=== PATIENT | male | born 1975 | race Caucasian/White ===

== ENCOUNTER 2020-11-05 11:08 | Outpatient (CLI) | payer OTHER, SELFPAY ==
--- NOTE | ~2020-11-05 | XR_ITS ---
XR lumbar spine 2-3V DATE: 11/05/2020 12:20 INDICATION: Low back pain for one week. No known injury. TECHNIQUE: AP, lateral projections COMPARISON: 02/06/2019 MR lumbar spine FINDINGS: Minimal levorotoscoliosis of the lower thoracic and lumbar spine. No fracture or bone destruction. The lumbar pedicles are intact. Lumbar and lumbosacral interspaces a re well preserved. The sacroiliac joints appear normal. IMPRESSION: Minimal levoscoliosis; otherwise negative Reviewed, dictated and finalized at location A. ING CONSULTANT
== END 2020-11-05 11:09 | disposition home or self-care (01) ==
PROVIDERS: PCP Family Medicine; Visit Provider Family Medicine
DX: M54.5 Low back pain (principal)
CPT/HCPCS: 72100

== ENCOUNTER 2020-11-21 01:03 | Day surgery (SDC) | payer OTHER, SELFPAY ==
[2020-11-20 14:16] VITALS: BMI 26.1
[2020-11-21] VITALS (7 sets, daily range): BP systolic 98–145; BP diastolic 59–79; PULSE 53–66; RESP 12–18; TEMP 36.6–36.8; O2SAT 96–100
--- NOTE | 2020-11-21 05:54 | PM.HPGS ---
History of Present Illness History of Present Illness Consent: Risks, benefits, and alternatives have been discussed and questions answered. Patient agrees to proceed with procedure. Chief complaint: Left Ear Hematoma Narrative: Victoriano Cordero is a 45 year old male he has a large left hematoma which has been drained in the office several times it needs to be drained inter intraoperatively Review of Systems Review of Systems: All systems reviewed & are unremarkable except as noted in HPI and below PMFSH Family History Family History Mother Cancer Grandparent Heart disease Sibling Hypertension Social History Social History Smoking packs per day: 0.75 Smoking cigarettes per day: 15.0 Years smoked: 26 Smoking pack-years: 19.50 Smoking status: Current every day smoker Tobacco type: cigarettes Alcohol intake: current Alcohol use details: ~1 DRINK/MONTH Substance use: never Substance use type: does not use Living arrangements: with family Additional living arrangements comments: WITH COUSIN, LEXUS Spiritual care concerns: No Meds Home Medications and Allergies Home Medications Medication Instructions Recorded Confirmed Type baclofen 20 mg tablet 20 mg PO TID 11/12/20 11/20/20 History citalopram 40 mg tablet 40 mg PO HS 11/12/20 11/20/20 History zolpidem 10 mg tablet 10 mg PO HS 11/12/20 11/20/20 History New Antibiotic 11/20/20 History gabapentin 2,400 mg PO BID 11/20/20 11/20/20 History Allergies Allergy/AdvReac Type Severity Reaction Status Date / Time meloxicam [From Mob] Allergy Itching Verified 11/20/20 14:11 Exam Narrative: Exam Narrative: the large left ear hematoma chest clear heart normal rhythm nomurmurs abdomen is soft extremities negative impression ear hematoma plan I and D Assessment and Plan Additional Plan plan is to I and D ear hematoma left
--- NOTE | 2020-11-21 05:57 | WPDHPUPDATE1 ---
History and Physical Update Update Date/Time: 11/21/20 05:57 History and Physical has been reviewed, including an updated exam of the patient. There are NO changes in the patient's condition. Risks, benefits, and alternatives have been discussed and questions answered. Patient agrees to proceed with procedure.
[2020-11-21] MEDS: LACTATED RINGERS 1,000 ML 30 ML IV CONT (08:15)
--- NOTE | 2020-11-21 08:56 | P.PNAN_ITS ---
Anes - Initial Pre Proc Eval Procedure: Operation Date: 11/21/20 10:45 Proposed Procedures p Incision And Drainage of Left Ear Hematoma - Benjamin Slater MD Date/Time: 11/21/20 08:56 Surgeon: Benjamin Slater MD Pre Op Diagnosis: Left Ear Hematoma Patient Data Age: 45 Gender: M Height: 5 ft 8.5 in Weight: 79 kg Allergies Allergy/AdvReac Type Severity Reaction Status Date / Time meloxicam [From Mobic] Allergy Itching Verified 11/21/20 08:54 Home Medications Medication Instructions Recorded Confirmed Type baclofen 20 mg tablet 20 mg PO TID 11/12/20 11/21/20 History citalopram 40 mg tablet 40 mg PO HS 11/12/20 11/21/20 History zolpidem 10 mg tablet 10 mg PO HS 11/12/20 11/21/20 History gabapentin 2,400 mg PO BID 11/20/20 11/21/20 History Patient hx anesthesia problems: none Family hx anesthesia problems: [facility] Past Medical History Medical History (Updated 11/21/20 @ 08:55 by Medardo Vazquez MD) CRPS (complex regional pain syndrome) type I Family History Family History Mother Cancer Grandparent Heart disease Sibling Hypertension Social History Social History Smoking packs per day: 0.75 Smoking cigarettes per day: 15.0 Years smoked: 26 Smoking pack-years: 19.50 Smoking status: Current every day smoker Tobacco type: cigarettes Alcohol intake: current Alcohol use details: ~1 DRINK/MONTH Substance use: never Substance use type: does not use Living arrangements: with family Additional living arrangements comments: WITH COUSINLEXUS Spiritual care concerns: No Anes - Eval Final PreProcedure Day of Procedure 11/21/20 08:56 Patient weight: normal Heart: regular rate and rhythm Lungs: clear to auscultation Airway: Mallampati scale class II Neurological: alert and oriented Last oral intake: >/= 8 hours ASA classification: II Emergent: no Anesthetic plan: proceed Anesthesia type and monitoring: general LMA and standard monitoring Informed Consent: The patient's anesthetic plan and its attendant risks and benefits were discussed with the patient/family/POA. Questions were solicited and answers provided to the satisfaction of the patient/family/POA.
[2020-11-21] MEDS: LIDO 1%/EPINEPHRINE 1:100,000 50 ML VIAL INFILTRATE (09:29)
--- NOTE | 2020-11-21 09:33 | PM.PROC ---
Procedure Note - Detailed Date of procedure: 11/21/20 Pre-op diagnosis: Left Ear Hematoma Post-op diagnosis: same Procedure performed: I and D hematoma or and placement of VAC lip last cast Description of procedure: Patient anesthesia after general anesthesia the area of the external ear was injected with xylocaine with adrenaline incision made the remainder of the fluid aspirated echo plasty he did and placed in the anterior-posterior fashion and sutured in with 2 silk Surgeon: Benjamin Slater MD Estimated blood loss (mL): 5 Drains: No Pathology: none sent Findings: Ear hematoma
== END 2020-11-21 10:53 | disposition home or self-care (01) ==
PROVIDERS: PCP Family Medicine; Visit Provider Otolaryngology
DX: H61.122 Hematoma of pinna, left ear (principal); G90.50 Complex regional pain syndrome I, unspecified; F17.210 Nicotine dependence, cigarettes, uncomplicated
CPT/HCPCS: 69000; A9270; J2250; J3010; J7120

== ENCOUNTER 2020-12-20 11:00 | Outpatient (RCR) | payer OTHER, SELFPAY ==
--- NOTE | 2020-11-22 14:43 | PTOPEVAL ---
PHYSICAL THERAPY EVALUATION AND PLAN OF CARE 11-22-20 Thank you for referring Victoriano Cordero to [facility] for the diagnosis of back pain. His plan of treatment includes land and aquatic therapy--for the buoyancy effects of the water. Aquatic exercises to begin after clearance from the ENT, when his ear can get wet. He is scheduled to be seen for therapy? 2 x/week for 4 weeks. Please review, sign, date and return this plan of care RASHEL. I agree with and certify that the following plan of care is medically necessary. Referring Physician Date Attending Provider: Mary Burns MD *PT Outpatient Evaluation Document 11/22/20 13:30 JORGE LUIS (Rec: 11/22/20 14:43 JORGE LUIS [id number]) Outpatient Past Medical History Past Medical History Source of Past Medical History Patient Neurological History Hx Other Neurological Disorders Yes: CRPS--L lower leg&thigh, lateral hip;L wrist,hand,elbow ,sh,clavicle,scapula; Cardiovascular History Hx Cardiac Disorders No Significant History Respiratory History Hx Respiratory Disorders No Significant History Gastrointestinal History Hx Gastrointestinal Disorders No Significant History Genitourinary History Hx Genitourinary Disorders No Significant History Musculoskeletal History Hx Orthopedic Surgery Yes: R 4x and L 6x knee surgeries- arthroscopic surgeries; Hx Other Musculoskeletal Disorders Yes: CRPS-R knee,pelvic/ant hip,elbow,wrist,hand Hematological History Hx Hematological Disorders No Significant History Endocrine History Hx Endocrine Disorders No Significant History HEENT History Hx HEENT Disorders No Significant History Integumentary History Hx Other Skin Disorders Yes: L ear cartilage infection - on antibiotics Reproductive History Hx Reproductive Disorders No Significant History Pain History Has Past Pain Affected Your Daily Life Yes Evaluation Information Problem Diagnosis low back pain Onset Oct 18, 2020 Subjective Information woke up on AM, with back pain, Query Text:As Reported By Patient/ thought slept wrong and it Family has not gone away; Diagnostic Tests X-Rays For This Problem Yes: per pt- negative Previous Treatments Previous Treatments For This Problem no PT for back pain- this first incident of back pain; prev PT for CRPS Prior Level of Function Activity Level (Last 3 Months) Occupation not working outside of home Hand Dominance Right Activity of Daily Living Ability Independent Indoor/Home Mobility Independent Community Mobility Independent Stairs Ability Independent
--- NOTE | 2020-12-09 16:27 | PCPTNOTE ---
pt was discussed with Marcia Galarza PTA. Added traction to plan of care for modality for pain;
--- NOTE | 2020-12-20 11:43 | PTOPEVAL ---
PHYSICAL THERAPY DISCHARGE 12-20-20 Pleas refer to the clinical summary below for his status, compared to the initial evaluation. The PT treatments that Juan received were gentle movements, aquatic and land exercises, and modalities for pain of electrical stim and mechanical traction. He reports the one session of traction made his pain worse, the stim did not change his back pain and land and aquatic exercises flared up his chronic regional pain syndrome of his L arm and leg. Juan voiced frustration over his situation and decreased ability to perform activities of daily living. He also expressed concern about causing more pain or injuring his back further, and causing a flare up of his chronic pain syndrome. Thank you for referring Victoriano Cordero to [facility] Please review, sign, date and return this discharge report RASHEL. I agree with and certify that the following plan of care is medically necessary. Referring Physician Date Attending Provider: Mary Burns MD Document 12/20/20 10:59 JORGE LUIS (Rec: 12/20/20 11:43 JORGE LUIS [id number]) Assessment Status Discharge Subjective Information Juan reports: aquatic Query Text:As Reported By Patient/ exercises increase pain, but Family tried, to see if they could help some; pain was in L arm, back and overall chronic regional pain syndrome; after water exercises, L wrist hurt so bad could not move for about 5 days; having problems doing exercises at home, due to flaring up other body areas and when engage back muscles, bones hurt; treatment here with electrical stim helped little with muscle pain, but not bone pain; the vibration bowl therapy from his friend usually helps for few hours of pain relief, last time it did not help at all; is fearful of moving and iincreasing his back pain; is frustrated with the pain and not being able to do things--cannot stand, cook, do house cleaning; takes all day to do laundry and going down the stairs to do it really hurts; PT has made pain worse. Pain Assessment Timing of Pain Assessment Timing of Pain Assessment Assessment Pain Scale Pain Scale Used Numeric (1 - 10) Self Report Pain Assessment Bilateral Back Reported Pain Level 8 Pain Frequency Chronic,Continuous Oth
== END 2020-12-20 13:34 | disposition home or self-care (01) ==
LOC: ANHPT 11:00
PROVIDERS: PCP Family Medicine; Visit Provider Family Medicine
DX: M54.5 Low back pain (principal)
CPT/HCPCS: 97012; 97014; 97110; 97113; 97140; 97162; G0283

== ENCOUNTER 2021-01-11 13:25 | Outpatient (CLI) | payer OTHER, SELFPAY ==
--- NOTE | ~2021-01-11 | MR_ITS ---
EXAMINATION: MR lumbar spine wo con EXAM DATE: 01/11/2021 14:07 INDICATION: Low back pain. CRPS, Algoneurodystrophy. TECHNIQUE: Multi-sequential, multiplanar MR images of the lumbar spine were obtained without contrast . Sagittal T1, T2, T2 fat saturation images. Axial T2 weighted images. Comparison is made to prior examination from 02/16/2019. FINDINGS: Mild disc disease at L4-5 and L5-S1. The vertebral body and disc heights are otherwise well maintained. The vertebral bodies are aligned in the AP dimension. The conus medullaris terminates at the L1 level and has normal signal intensity and morphology. There are no suspicious marrow signal abnormalities. Paraspinal soft tissue is unremarkable. Level by level evaluation: T12-L1: Disc does not extend beyond the endplate margin. Facet arthropathy: None. Neural foraminal stenosis: No stenosis. Central canal stenosis: No stenosis. L1-L2: Disc does not extend beyond the endplate margin. Facet arthropathy: Mild. Neural foraminal stenosis: No stenosis. Central canal stenosis: No stenosis. L2-L3: Disc does not extend beyond the endplate margin. Facet arthropathy: Mild. Neural foraminal stenosis: No stenosis. Central canal stenosis: No stenosis. L3-L4: Disc does not extend beyond the endplate margin. Facet arthropathy: Mild. Neural foraminal stenosis: No stenosis. Central canal stenosis: No stenosis. L4-L5: There is a mild diffuse disc bulge. Facet arthropathy: Mild. Neural foraminal stenosis: Mild bilateral. Central canal stenosis: No stenosis. L5-S1: There is a mild diffuse disc bulge. Facet arthropathy: Mild. Neural foraminal stenosis: Mild to moderate left, mild right. Central canal stenosis: No stenosis. Difficult to appreciate any significant interval change compared to 2019. IMPRESSION: 1. Mild lumbar spondylosis. Reviewed, dictated and finalized at location A. IMPRESSION: 1. Mild lumbar spondylosis.
== END 2021-01-11 13:26 | disposition home or self-care (01) ==
PROVIDERS: PCP Family Medicine; Visit Provider Family Medicine
DX: M89.00 Algoneurodystrophy, unspecified site (principal); M47.896 Other spondylosis, lumbar region
CPT/HCPCS: 72148

== ENCOUNTER 2021-01-13 15:45 | Outpatient (CLI) | payer OTHER, SELFPAY | END 2021-01-13 15:46 | disposition home or self-care (01) | LOC: ANHLAB 15:49 | PROVIDERS: PCP Family Medicine; Visit Provider Otolaryngology | DX: S00.431A Contusion of right ear, initial encounter (principal) | CPT/HCPCS: 36415; 86038 ==

== ENCOUNTER → 2021-01-27 04:42 | Outpatient (CLI) | payer OTHER, SELFPAY ==
[2021-01-27 19:57] LABS: SARS-CoV-2 RNA PCR Negative
== END ==
PROVIDERS: PCP Family Medicine; Visit Provider Otolaryngology
DX: Z01.812 Encounter for preprocedural laboratory examination (principal); Z20.822 Contact with and (suspected) exposure to COVID-19
CPT/HCPCS: C9803; U0003; U0005

== ENCOUNTER 2021-01-30 02:11 | Day surgery (SDC) | payer OTHER, SELFPAY ==
[2021-01-24 08:56] VITALS: BMI 26.7
--- NOTE | 2021-01-27 06:16 | P.HP_ITS ---
History of Present Illness History of Present Illness Consent: Risks, benefits, and alternatives have been discussed and questions answered. Patient agrees to proceed with procedure. Chief complaint: hematoma right ear Narrative: Victoriano Cordero is a 45 year old male has an hematoma the right ear which was lanced in the office he is going to the operating room now for further i PMFSH Past Medical History Medical History CRPS (complex regional pain syndrome) type I Family History Family History Mother Cancer Grandparent Heart disease Sibling Hypertension Social History Social History Smoking packs per day: 0.75 Smoking cigarettes per day: 15.0 Years smoked: 20 Smoking pack-years: 15.00 Smoking status: Current every day smoker Tobacco type: cigarettes Alcohol intake: current Substance use: never Substance use type: does not use Additional living arrangements comments: WITH COUSINLEXUS Spiritual care concerns: No Meds Home Medications and Allergies Home Medications Medication Instructions Recorded Confirmed Type baclofen 20 mg tablet 20 mg PO TID 11/12/20 01/24/21 History citalopram 40 mg tablet 40 mg PO HS 11/12/20 01/24/21 History zolpidem 10 mg tablet 10 mg PO HS 11/12/20 01/24/21 History gabapentin 2,400 mg PO BID 11/20/20 01/24/21 History Allergies Allergy/AdvReac Type Severity Reaction Status Date / Time meloxicam [From Mobic] Allergy Itching Verified 01/24/21 08:55 nicotine [From Nicoderm CQ] Allergy Blister Verified 01/24/21 09:00 Exam Narrative: Exam Narrative: chest clear heart other murmurs them such a negative hematoma right ear Assessment and Plan Additional Plan plan is incision and drainage of the right ear with placement of bilateral spl ints
[2021-01-30] VITALS (7 sets, daily range): BP systolic 115–135; BP diastolic 59–85; PULSE 58–78; RESP 12–18; TEMP 36.3; O2SAT 93–97; BMI 26.0
--- NOTE | 2021-01-30 06:02 | WPDHPUPDATE1 ---
History and Physical Update Update Date/Time: 01/30/21 06:02 History and Physical has been reviewed, including an updated exam of the patient. There are NO changes in the patient's condition. Risks, benefits, and alternatives have been discussed and questions answered. Patient agrees to proceed with procedure.
--- NOTE | 2021-01-30 09:32 | WPDANESEPPF ---
Anes - Initial Pre Proc Eval Procedure: Operation Date: 01/30/21 11:00 Proposed Procedures p Incision And Drainage Of Right Ear Hematoma - Benjamin Slater MD Date/Time: 01/30/21 09:32 Surgeon: Benjamin Slater MD Pre Op Diagnosis: hematoma right ear Patient Data Age: 45 Gender: M Height: 5 ft 8.5 in Weight: 78.8 kg Last Vital Signs Temp 97.4 F L 01/30/21 09:20 Pulse 76 01/30/21 09:20 Resp 18 01/30/21 09:20 BP 131/76 01/30/21 09:20 Pulse Ox 97 01/30/21 09:20 Allergies Allergy/AdvReac Type Severity Reaction Status Date / Time meloxicam [From Mobic] Allergy Itching Verified 01/30/21 09:23 nicotine [From Nicoderm CQ] Allergy Blister Verified 01/30/21 09:23 Home Medications Medication Instructions Recorded Confirmed Type baclofen 20 mg tablet 20 mg PO TID 11/12/20 01/30/21 History citalopram 40 mg tablet 40 mg PO HS 11/12/20 01/30/21 History zolpidem 10 mg tablet 10 mg PO HS 11/12/20 01/30/21 History gabapentin 2,400 mg PO BID 11/20/20 01/30/21 History Patient hx anesthesia problems: none Family hx anesthesia problems: none PMFSH Past Medical History Medical History CRPS (complex regional pain syndrome) type I Family History Family History Mother Cancer Grandparent Heart disease Sibling Hypertension Social History Social History Smoking packs per day: 0.75 Smoking cigarettes per day: 15.0 Years smoked: 26 Smoking pack-years: 19.50 Smoking status: Current every day smoker Tobacco type: cigarettes Alcohol intake: current Alcohol use details: 2/MONTH Substance use: never Substance use type: does not use Living arrangements: with family Additional living arrangements comments: WITH COUSIN, LEXUS Spiritual care concerns: No Anes - Eval Final PreProcedure Day of Procedure 01/30/21 09:32 Patient weight: normal Heart: regular rate and rhythm Lungs: clear to auscultation Airway: Mallampati scale class II Neurological: alert and oriented Last oral intake: >/= 8 hours ASA classification: II Emergent: no Anesthetic plan: proceed Anesthesia type and monitoring: general LMA and standard monitoring Informed Consent: The patient's anesthetic plan and its attendant risks and benefits were discussed with the patient/family/POA. Questions were solicited and answers provided to the satisfaction of the patient/family/POA.
[2021-01-30] MEDS: LACTATED RINGERS 1,000 ML 30 ML IV CONT (09:33)
[2021-01-30] MEDS: LIDO 1%/EPINEPHRINE 1:100,000 50 ML VIAL INFILTRATE (10:24)
--- NOTE | 2021-01-30 10:34 | PM.PROC ---
Procedure Note - Detailed Date of procedure: 02/03/21 Pre-op diagnosis: hematoma right ear Procedure performed: Incision and drainage hematoma right ear with placement of splints Description of procedure: [place] Anesthesia and the ear was injected xylocaine with adrenaline and incision made near the prior hematoma was opened up and splints sutured in on both sides with to a Flick Anesthesia: GLMA Surgeon: Benjamin Slater MD Estimated blood loss (mL): 0 Drains: No Packing: No Pathology: none sent Complications: No immediate complications Condition: stable Disposition: PACU Findings: Small hematoma right ear
== END 2021-01-30 12:02 | disposition home or self-care (01) ==
PROVIDERS: PCP Family Medicine; Visit Provider Otolaryngology
PROC: (CPT 69000; principal; 2021-01-30 11:00)
DX: S00.432A Contusion of left ear, initial encounter (principal); F17.210 Nicotine dependence, cigarettes, uncomplicated; X58.XXXA Exposure to other specified factors, initial encounter; Y93.9 Activity, unspecified; Y92.9 Unspecified place or not applicable; Y99.9 Unspecified external cause status
CPT/HCPCS: 69000; A9270; J1100; J2250; J2405; J2704; J3010; J7120

== ENCOUNTER 2022-06-09 12:30 | Outpatient (RCR) | payer OTHER, SELFPAY ==
--- NOTE | 2022-04-28 10:17 | PTOPEVAL ---
PHYSICAL THERAPY INITIAL EVALUATION. Thank you for referring Victoriano Cordero to [facility].? The patient is scheduled to be seen for therapy? 1x/week for 6 weeks. Please review, sign, date and return this plan of care RASHEL. I agree with and certify that the following plan of care is medically necessary. Referring Physician Date Attending Provider: Alphonso Gardner *PT Outpatient Evaluation Start: 04/28/22 Outpatient Past Medical History Hx Other Neurological Disorders Yes: CRPS--L lower leg&thigh, lateral hip;L wrist,hand,elbow ,sh,clavicle,scapula; Hx Orthopedic Surgery Yes: R 4x and L 6x knee surgeries- arthroscopic surgeries; Hx Other Musculoskeletal Disorders Yes: CRPS-R knee,pelvic/ant hip,elbow,wrist,hand Evaluation Information Diagnosis Complex Regional pain syndrome Onset chronic Subjective Information Pt states he has complex Query Text:As Reported By Patient/ regional pain syndrome (CRPS). Family He states he has tried therapy multiple times and not been able to pass even aquatic therapy. He states his L shoulder has been causing him more issues than usual. He states he does not know if this is a greater flair up of his CRPS or something wrong with his shoulder. He reports CRPS in his L knee, hip, shoulder, elbow, wrist, collar bone, scapular, ankle, and all the joint of his left hand . The same joint are involved on his R side. Pt states he went to [place] to visit family, coming back he was sad because he was leaving them, he states the emotions forced him t o have to stay in bed for 10 days. Pt states his shoulder pain has increased over the last 2 months. Pain Assessment Timing of Pain Assessment Timing of Pain Assessment Assessment Pain Scale Pain Scale Used Numeric (1 - 10) Self Report Pain Assessment Generalized Reported Pain Level 8 Lowest Pain Intensity 6 Greatest Pain Intensity 10 Pain Score Pain Score 8: Self Report Intervention
--- NOTE | 2022-06-09 13:18 | PTOPDC ---
Evaluation Information Assessment Status Progress Diagnosis CPRS Onset chronic Subjective Information Pt states he has been better. He reports his shoulder is a lost cause . he states this weekend he went to his uncles house this weekend and was able to have a good time. Pt states he has had no improvement with therapy since he started. He states he actually is finding more and more things that he cannot d/t bc of pain. Pt reports 0% improvement in his shoulder, he reports worsening in his symptoms d/t exercise. He would like to be done with therapy d/t his CRPS. Pt states he wants to put his arm in a sling but cant because of his CRPS in his elbow. Reported Pain Level Pain Score 8: Self Report Assessment PT Clinical Summary Victoriano presents to therapy today for his progress report following 6 visits of skilled therapy. Today he reports 0% improvement in overall symptoms. He continues to reports mainly shoulder pain aside from his everyday pain. He demonstrates active L shoulder ROM that is WFL, when motion is performed slowly. He demonstrates grossly 3+/5 strength throughout his L shoulder. He reports no improvements overall either d/t limitations from his CRPS. He states he would like to be discharged from skilled therapy services at this time d/t making no progress. FIQR at initial evaluation 161/210, 76% disability FIQR today 168/210, 80% disability Plan of Care PT Services Indicated No Treatment Frequency and to be d/c'ed per pt request Duration
== END 2022-06-10 14:09 | disposition home or self-care (01) ==
LOC: ANHPT 12:30
DX: G90.529 Complex regional pain syndrome I of unspecified lower limb (principal)
CPT/HCPCS: 97014; 97110; 97112; 97140; 97162; 97530; G0283

== ENCOUNTER 2022-06-16 12:36 | Outpatient (CLI) | payer OTHER, SELFPAY ==
--- NOTE | ~2022-06-16 | XR_ITS ---
XR shoulder LT min 2V DATE: 06/16/2022 13:05 INDICATION: Left shoulder joint pain since October,. No recent injury. TECHNIQUE: 4 views COMPARISON: 12/31/2018 left shoulder FINDINGS: No fracture or dislocation, periosteal reaction or bone destruction or abnormal soft tissue calcification. Normal alignment at the acromioclavicular and glenohumeral joints. IMPRESSION: No significant abnormality Reviewed, dictated and finalized at location A. IMPRESSION: No significant abnormality
== END 2022-06-16 12:37 | disposition home or self-care (01) ==
LOC: ANHIMG 12:40
PROVIDERS: PCP Physician Assistant; Visit Provider Physician Assistant
DX: M25.512 Pain in left shoulder (principal)
CPT/HCPCS: 73030

== ENCOUNTER 2022-07-03 14:25 | Outpatient (CLI) | payer OTHER, SELFPAY ==
--- NOTE | ~2022-07-03 | MR_ITS ---
EXAMINATION: MR shoulder LT wo con DATE: 07/03/2022 15:31 INDICATION: Left shoulder pain. TECHNIQUE: Magnetic resonance imaging (MRI) of the left shoulder was performed without intravenous co ntrast. Sequences included axial PD-weighted FS FSE, coronal oblique PD-weighted FS FSE and T2-weight ed FS FSE, and sagittal oblique T2-weighted FS FSE and T1-weighted FSE. COMPARISON: Left shoulder radiographs 06/16/2022 FINDINGS: Coracoacromial arch: The acromion undersurface is curved in morphology (type II). There is mild acromioclavicular joint os teoarthritis. No subacromial/subdeltoid bursitis. Rotator cuff: There is mild supraspinatus and infraspinatus tendinopathy. Teres minor tendon is normal. There is mi ld subscapularis tendinopathy. No tear. There is no asymmetric fatty atrophy of the rotator cuff musc le bellies. Biceps tendon and glenoid labrum: Biceps tendon is in bicipital groove. Intra-articular biceps tendon is normal. The glenoid labrum is normal. Fluid: There is no glenohumeral joint effusion. Bones/cartilage: Glenoid cartilage is normal. Humeral head cartilage is normal. IMPRESSION: 1. Mild rotator cuff tendinopathy. No tear. 2. Mild acromioclavicular joint osteoarthritis. Reviewed, dictated and finalized at location A.
== END 2022-07-03 14:26 | disposition home or self-care (01) ==
PROVIDERS: PCP Physician Assistant; Visit Provider Physician Assistant
DX: M25.512 Pain in left shoulder (principal); M75.82 Other shoulder lesions, left shoulder; M19.012 Primary osteoarthritis, left shoulder
CPT/HCPCS: 73221

== ENCOUNTER 2023-01-06 11:51 | Outpatient (RCR) | payer OTHER, SELFPAY ==
--- NOTE | 2023-01-06 13:12 | PTOPEVDC ---
Assessment and note entered by Wander Hand, PT Thank you for referring Victoriano Cordero to [facility].? An evaluation has been completed. No further treatment is needed. Evaluation Information Assessment Status Evaluation Diagnosis S/P HILDA bunionectomy Onset 11/24/22 Subjective Information Patient reports having some issues with the feet when he was wearing his medical post op shoes, but after getting back to regular shoes and pulling stitches out on both sides he is doing very well. Reporting no issues with walking, standing, or steps currently. Patient reports he has been doing stretching and range of motion prior to seeing the physical therapist. Reports seeing the surgeon 01/18/23 Reported Pain Level Pain Score 0: Self Report Assessment PT Clinical Summary Mr. Cordero is a 47 year old male coming into the clinic for a diagnosis of bunions HILDA LE. He had surgery on 11/24/22 and has progressed from medical post op shoe to regular tennis shoes. Patient has WFL ankle and big toe range of motion. Not having complaints of pain or with functional mobility. Discharged from skilled physical therapy with HEP to keep tendons and scar from having adhesions. Plan of Care PT Services Indicated No Treatment Frequency and discharged skilled physical therapy. Duration
== END 2023-01-06 15:23 | disposition home or self-care (01) ==
LOC: ANHPT 11:51
PROVIDERS: PCP Physician Assistant
DX: M21.619 Bunion of unspecified foot (principal)
CPT/HCPCS: 97110; 97161

== ENCOUNTER 2023-12-06 08:05 | Outpatient (CLI) | payer OTHER, SELFPAY ==
--- NOTE | ~2023-12-06 | XR_ITS ---
EXAMINATION: XR shoulder LT min 2V DATE: 12/06/2023 08:24 INDICATION: Left shoulder pain. TECHNIQUE: 4 views of left shoulder were obtained. COMPARISON: Left shoulder radiographs 06/16/2022 FINDINGS: Bone alignment is normal. No fracture. Glenohumeral joint is normal. There is mild acromioc lavicular joint osteoarthritis. IMPRESSION: 1. Mild left acromioclavicular joint osteoarthritis. Reviewed, dictated and finalized at location E. 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
== END 2023-12-06 08:06 | disposition home or self-care (01) ==
PROVIDERS: PCP Physician Assistant; Visit Provider Physician Assistant
DX: M19.012 Primary osteoarthritis, left shoulder (principal)
CPT/HCPCS: 73030

== ENCOUNTER 2024-01-13 13:15 | Outpatient (RCR) | payer OTHER, SELFPAY ==
--- NOTE | 2023-12-31 10:00 | OPREHPOC ---
Outpatient Therapy Plan of Care This is a Multidisciplinary Plan of Care that may contain components documented by all disciplines (PT, OT, and ST.) PT Problem 1 PT Problem #1 Knowledge Deficit PT Goal 1 Goal *indep with HEP PT Problem 2 PT Problem #2 Pain PT Goal 1 Goal 1* pt report pain at worst of 6/10 2* self assessment with Quick Dash of 32% limitation 3* pt report sleeping 2 hours at time PT Problem 3 PT Problem #3 Impaired Strength PT Goal 1 Goal increase L shoulder strength to improve ability to perform self care and home tasks: standing L shoulder active ROM x 3 reps: 1* flexion to 95' 2* abduction to 90' 3* IR- reach behind back, fingers to lower edge scapula 4* ER- reach behind head, palm to back of head
--- NOTE | 2023-12-31 10:00 | PTOPEVAL1 ---
Assessment and note entered by Guillermina Mccormack, PT Evaluation Information Assessment Status Evaluation Diagnosis L shoulder pain Onset Jun Subjective Information gradual increase in shoulder pain over the past few years; add cortisone shot in shoulder 2x- first helped, second did not help; more pain and cannot get relief anymore; is R hand dominant; no trauma or injury to shoulder; history: self dislocation/ reposition of L shoulder; chronic regional pain syndrome- affects L side of body; x ray: recent mild L A-C joint OA; MRI of shoulder reported mild tendinopathy mild A-C joint OA; Activity: not working outside of home, have applied for disability; living with his parents, to assist with care of his mom who is ill; Quick DASH self rating of 48% limitation in activity pt has had multiple PT sessions for pain-- discussed treatment options with him: home stim, US, aquatic--not help his pain; he has never had cold laser, taping or dry needling; Reported Pain Level Pain Score Self Report Additional Pain Score Comments pain range of the past week 6- 9/10; posterior, anterior and lateral GH joint, hurts, sharp; shoots up to neck and down to elbow increase pain: using arm decrease pain: cannot get shoulder in a comfortable position; heat/ice not help; sleeping disrupted-- awaken every hour due to pain and then cannot get comfortable to go back to sleep; total 3-4 hr/night (norm for him is 6 hr/ night) home stim unit helps a little over muscles in upper back, but not help over shoulder; discussed use of sling to support arm--pressure over elbow increases pain in elbow and shoulder Assessment PT Clinical Summary Victoriano has the diagnosis of L shoulder pain. His medical history includes chronic L shoulder pain, chronic pain with L side chronic regional pain syndrome. His self asse
--- NOTE | 2024-01-14 10:11 | PCPTNOTE ---
talked with pt on phone, he reported more pain since coming for therapy, wants to stop for now. Discussed to make follow up appt with provider, canceled 3 PT appointments. Will keep his chart open for 30 days, to call if additional PT needed. He is to continue stretching ROM of shoulder to maintain as he tolerates.
--- NOTE | 2024-02-08 14:17 | PTOPDC ---
Assessment and note entered by Guillermina Mccormack, PT Discharge Information Assessment Status Discharge - Pt Not Present Diagnosis L shoulder pain Onset Jun Assessment PT Clinical Summary Victoriano has received 3 PT sessions, then canceled the therapy due to having more pain. The goals were not addressed. Discharge PT services. Plan of Care PT Services Indicated No
== END 2024-02-08 14:34 | disposition home or self-care (01) ==
LOC: ANHPT 13:15
PROVIDERS: PCP Physician Assistant; Visit Provider Physician Assistant
DX: M25.512 Pain in left shoulder (principal)
CPT/HCPCS: 97039; 97140; 97162; 97530

== ENCOUNTER 2024-02-08 09:41 | Outpatient (CLI) | payer OTHER, SELFPAY ==
--- NOTE | ~2024-02-08 | MR_ITS ---
EXAMINATION: MR shoulder LT wo con DATE: 02/08/2024 10:40 INDICATION: Left shoulder pain TECHNIQUE: Magnetic resonance imaging (MRI) of the left shoulder was performed without intravenous co ntrast. Sequences included axial PD-weighted FS FSE, coronal oblique PD-weighted FS FSE, coronal obli que T2-weighted FS FSE, sagittal PD-weighted FS FSE, and sagittal T1-weighted SE. COMPARISON: None. FINDINGS: Coracoacromial arch: The acromion undersurface is curved in morphology (type II). The coracoacromial ligament is normal. M ild acromioclavicular osteoarthritis. Rotator cuff: Moderate supraspinatus and infraspinatus tendinopathy with small partial-thickness intrasubstance tea r at the greater tuberosity footplate of the supraspinatus tendon involves approximately one half of the tendon thickness but appears to severe at the articular and bursal surfaces. The teres minor tend on is normal. Mild subscapularis tendinopathy with small linear longitudinal split tear between the f ibers of the cephalad and mid thirds of the tendon which extends approximately 1.2 cm medially from t he lesser tuberosity footplate. Normal rotator cuff muscle bulk and signal. Biceps tendon, glenoid labrum and glenohumeral cartilage: Long head of the biceps tendon is normal. There is thickening and irregular increased signal at the a nteroinferior glenoid labrum consistent with degenerative tearing with more well-defined linear tear extending from the inferior labrum at the 6:00 position to the 9:00 position of the posterior labrum. Glenohumeral cartilage is normal. Fluid: Physiologic amount of fluid in the glenohumeral joint and biceps tendon sheath. No loose osteochondr al bodies. No abnormal fluid signal in the subacromial/subdeltoid bursa to suggest bursitis. Bones: Bone alignment is normal. No fracture or pathologic marrow replacing process. IMPRESSION: 1. Tear of the caudal half of the glenoid labrum. 2. Mild tendinopathy and small moderate severity intrasubstance tear at the footplate of the supraspi natus tendon. 3. Mild tendinopathy and small longitudinal split tear at the distal subscapularis tendon. 4. Mild acromioclavicular osteoarthritis. Reviewed, dictated and finalized at location A. IMPRESSION: 1. Tear of the caudal half of the glenoid labrum. 2. Mild tendinopathy and small moderate severity intrasubstance tear at the brook tplate of the supraspinatus tendon. 3. Mild tendinopathy and small longitudinal split tear at the distal subscapula ris tendon. 4. Mild acromioclavicular osteoarthritis.
== END 2024-02-08 09:42 | disposition home or self-care (01) ==
PROVIDERS: PCP Physician Assistant; Visit Provider Physician Assistant
DX: S43.432A Superior glenoid labrum lesion of left shoulder, initial encounter (principal); M75.112 Incomplete rotator cuff tear or rupture of left shoulder, not specified as traumatic; M19.012 Primary osteoarthritis, left shoulder; X58.XXXA Exposure to other specified factors, initial encounter
CPT/HCPCS: 73221

== ENCOUNTER 2025-06-16 07:33 | Emergency (ER) | payer OTHER, SELFPAY ==
--- OUTSIDE RECORDS SUMMARY | 2012-04-05 05:00 | XMS_ITS | Continuity of Care Document ---
Author Organization [facility] Address [address] [place] [address] Phone Care Team Providers Care Sales Floor Team Leader Name Role Phone Maximilian Horne MD Unavailable Unavailabl e Allergies, Adverse Reactions, Alerts Substance Reaction Status Criticality No Known allergies Medications Medication Instructions Dosage Effective Dates (start - stop) Status Comments tramadol 50 mg Tab take 1 tablet (50MG) by oral route every 6 hours as needed 50 MG - Active Advance Directives Directive Yes / No Effective Date File Name Resuscitation Not Answered N/A N/A Life Support Not Answered N/A N/A Intubation Not Answered N/A N/A Antibiotics Not Answered N/A N/A IV Fluid Support Not Answered N/A N/A Tube Feed Not Answered N/A N/A Other Directive N/A N/A WARNING:The information contained in this section is historical and is provided for information only and does not constitute a legal document or any assurance that the information is still accurate. Please verify the information with the ann of the legal document before using it for clinical purposes. Encounters Encounter Description Practice Location Reason(s) For Visit Diagnoses Date Provider Providers Copied on Encounter [facility], [address] [facility], [place], [address], [place] tel:[phone] [facility] Aftercare following surgery of the musculoskeletal system, necPain in joint involving lower legChondromalacia of patella 2 Paty Yao. [address] , [place], [place], [id number] . tel:[phone] [facility], [address] [facility] [address], [place], [address], [place] tel:[phone] [facility] Aftercare following surgery of the musculoskeletal system, [facility] [address] Angle Kahn. [address], [place], [place], [id number] . tel: [phone] [facility], [address], [address], [place] tel:[phone] [facility] Pain in limb 2 Angle Kahn. [address], [place], [id number] . tel: [phone] [facility], [address] [facility] [address] [address], [place], [address], [place] tel:[phone] [facility] (chief complaint) Aftercare following surgery of the musculoskeletal system, [facility] [address] Ang[address] Kahn. [address] [place], [place], [id number] . tel: [phone] Family History Family Member Type Diagnosis Age At Onset No Information Payers Payer name Insurance type Covered democrat ID Authoriza tion(s) No Information Social History Type Description Quantity Date Captured Comments Alcohol Use Details beer Caffeine Use Details Unknown Tobacco Use Status No Information Smoking Status Current every day smoker 2011 Sex Male Vital Signs Date / Time: Height Weight BMI Pulse Rate Blood Pressure Temperature Respiratory Rate Body Surface Area Head Circumference Head Circ. Percentile Wt./Jacoby. Percentile BMI percentile Pulse Ox Inhaled Ox 9:59 AM 68.50 in 160.00 lbs 23.9 7 kg/m eter (2) Chief Complaint And Reason For Visit No Information Reason For Referral Reason For Referral No Information Plan Of Treatment Date Type Action Status Referral Ordered: N-INVAS PHYSIOLOGIC STD XTR VEINS COMPL BI STD LT knee/leg ordered History Of Present Illness Encounter Date Complaint History Of Prese nt Illness No Information Functional Status Date Functional Assessmen t No Information Instructions Date Instruction Additional Infor mation No Information Assessments Type Assessment Date No Information Patient Care Teams Name Effective Dates (start - stop) Status Members No Information
--- OUTSIDE RECORDS SUMMARY | 2013-12-01 08:28 | XMS_ITS | Continuity of Care Document ---
Author Organization [facility] Address [address] [place] [address] Phone Care Team Providers Care Grinding Supervisor Name Role Phone Brandon Barroso MD, MD Unavailable Unavailable Allergies, Adverse Reactions, Alerts Substance Reaction Status Criticality No Known Allergies Active No Inform ation Procedures Procedure Date X-ray exam knee, 3 views Independent Medical Examination IVELISSE X-ray exam knee, 3 views Advance Directives Directive Yes / No Effective Date File Name No Information Encounters Encounter Description Practice Location Reason(s) For Visit Diagnoses Date Provider Providers Copied on Encounter [facility], [address] [place] [address], [id number], [phone] [facility] No Information 4 Dharmesh Taylor. [address], [id number] , [place]. tel: [phone] Independent Medical Examination IVELISSE [facility], [address] [place] [address], [id number], [place] tel:[phone] [facility] bilateral knee IVELISSE (chief complaint) Other Chronic PainJOINT PAIN-L/LEG 4 Dharmesh Taylor. [address] [facility] [address], [place], [place], [id number] , [place]. tel: [phone] Family History Family Member Type Diagnosis Age At Onset No Information Payers Payer name Insurance type Covered republican ID Authoriza tion(s) No Information Social History Type Description Quantity Date Captured Comments Sex Male Smoking Status No Information Chief Complaint And Reason For Visit No Information Reason For Referral Reason For Referral No Information Plan Of Treatment Date Type Action Status Referral Ordered: X-ray exam knee, 3 views Bilateral ordered History Of Present Illness Encounter Date Complaint History Of Prese nt Illness No Information Functional Status Date Functional Assessmen t No Information Instructions Date Instruction Additional Infor mation No Information Assessments Type Assessment Date No Information Patient Care Teams Name Effective Dates (start - stop) Status Members No Information
--- NOTE | ~2025-06-16 | CT_ITS ---
EXAMINATION: CT abdomen pelvis wo con, 06/16/2025 10:00 CDT HISTORY: L flank pain radiating abd; c/f stone COMPARISON: No comparisons available. TECHNIQUE: CT scan of the abdomen and pelvis was performed without IV contrast. One or more of the following dose reduction techniques were used: automated exposure control, adjustment of the mA and/or kV according to patient size, use of iterative reconstruction technique. Unless otherwise stated, incidental findings do not require dedicated follow up imaging FINDINGS: CT abdomen: LUNG BASES: The lung bases are clear. The visualized portions of the heart and pericardium are unremarkable. LIVER: Unremarkable, liver contours intact, no lesions. SPLEEN: Unremarkable, no splenomegaly. KIDNEYS: Right Kidney: Unremarkable. No calculi. No hydronephrosis. Left Kidney: Left kidney there is minimal left hydronephrosis and hydroureter although there is no obstructing calcified ureteral calculus demonstrated. ADRENAL GLANDS: Unremarkable. PANCREAS: Unremarkable. GALLBLADDER/BILIARY: Unremarkable. No biliary dilatation. STOMACH AND ESOPHAGUS: Visualized stomach and esophagus within normal limits. BOWEL/MESENTERY: No colitis or diverticulitis. Appendix normal. Mesentery normal. Small bowel normal. ADENOPATHY/RETROPERITONEUM: No lymphadenopathy. AORTA/VASCULATURE: Normal caliber aorta. FREE FLUID OR FREE AIR: No free fluid.. CT pelvis: SOLID ORGANS/REPRODUCTIVE: Prostate is enlarged with heterogeneity noted of the right inferior prostate, and prostate lesion is not excluded, correlate with PSA and ultrasound. BLADDER: Within normal limits. OSSEOUS STRUCTURES: No acute osseous abnormality.No suspicious lesions. OVERLYING SOFT TISSUES: Unremarkable. IMPRESSION: 1. Left-sided hydronephrosis and hydroureter without obstructing calcified ureteral calculus. Findings may relate to a recently passed calculus, the differential includes an obstructing noncalcified calculus, stricture or urinary tract infection. Correlate clinically. Follow-up is suggested to assess r esolution. 2. Incidental findings above Reviewed, dictated and finalized at location A. IMPRESSION: 1. Left-sided hydronephrosis and hydroureter without obstructing calcified uret eral calculus. Findings may relate to a recently passed calculus, the different ial includes an obstructing noncalcified calculus, stricture or urinary tract i nfection. Correlate clinically. Follow-up is suggested to assess resolution. 2. Incidental findings above
--- OUTSIDE RECORDS SUMMARY | 2025-06-16 07:36 | XMS_ITS | Encounter Summary ---
Author Organization [facility] Address [address] [place] [address] Phone Care Team Providers Care Trimmer Helper Name Role Phone Bev Davis NP Primary Care Provider [phone] Arleth Moore Primary Care Provider [phone] Encounter Details Date Type Department Care Team (Late st Contact Info) Description 08/08/2019 Orders Only [facility] Medicine Neurology Outreach [address] [place] [address] Scanning, Provider Social History Tobacco Use Types Packs/Day Years Used Date Smoking Tobacco: Every Day Smokeless Tobacco: Never Alcohol Use Standard Drinks/Week Comments No 0 (1 standard drink = 0.6 oz pur e alcohol) Sex and Gender Information Value Date Recorded Sex Assigned at Not on file Legal Sex Male 8:15 AM [employer] Gender Identity Not on file Sexual Orientation Not on file documented as of this encounter Plan of Treatment Not on file documented as of this encounter Procedures Procedure Name Priority Date/Time Associated Diagnosis Comments SCAN - OTHER ORDERS 08/08/2019 documented in this encounter Results * SCAN - OTHER ORDERS (08/08/2019) us Provider Scanning Final Result documented in this encounter Visit Diagnoses Not on filedocumented in this encounter Care Teams Trimmer Helper Relationship Specialty Start Date End Date Bev Davis NP [address] [facility] [address] [place] [address] PCP - General 08/19/17 03/01/24 Arleth Moore PA [address] [place] [id number] PCP - General Physician Sample Book Maker 03/02/24 documented as of this encounter
--- OUTSIDE RECORDS SUMMARY | 2025-06-16 07:36 | XMS_ITS | Clinical Summary ---
Author Organization [facility] Address [address] [place] [id number] Care Team Providers Care Warehouse Stocker Name Role Phone Unavailable Primary Care Provider Unavailabl e Social History Tobacco Use Types Packs/Day Years Used Date Smoking Tobacco: Never Assessed Sex and Gender Information Value Date Recorded Sex Assigned at Not on file Legal Sex Male 5:21 PM CDT Gender Identity Not on file Sexual Orientation Not on file Last Filed Vital Signs Vital Sign Reading Time Taken Comments Blood Pressure 122/80 12/17/2016 8:04 AM CDT Pulse 112 12/17/2016 8:04 AM CDT Temperature - - Respiratory Rate - - Oxygen Saturation - - Inhaled Oxygen Concentration - - Weight 85.8 kg (189 lb 3 oz) 12/17/2016 8:04 AM CDT Height 174 cm (5' 8.5) 12/17/2016 8:04 AM CDT Body Mass Index 28.35 12/17/2016 8:04 AM CDT Plan of Treatment Health Maintenance Due Date Last Done Comments Colorectal Cancer Screening Colonoscopy (10 Years) 1977 Annual Physical 1980 Hepatitis C 1995 DTaP, Tdap and Td Vaccines ( 1 - Tdap) 1996 Hepatitis B Vaccines (1 of 3 - 19+ 3-dose series) 1996 COVID-19 Vaccine (2023-2 5 season) 2025 Meningococcal B Vaccine Aged Out No l onger eligible based on patient's age to complete this topic Meningococcal Vaccine Aged Out No fiorella jeffrey eligible based on patient's age to complete this topic Pneumococcal Vaccine: Pediat rics (0 to 5 Years) and At-Risk Patients (6 to 49 Years) Aged Out No longer eligible b ased on patient's age to complete this topic RSV Immunizations Under 20 Months Aged Out No longer eligible based on patient's age to complete this topic Insurance
--- OUTSIDE RECORDS SUMMARY | 2025-06-16 07:36 | XMS_ITS | Encounter Summary ---
Author Organization [facility] Address [address] [place] [address] Phone Care Team Providers Care Machine Learning Intern Name Role Phone Arleth Moore Primary Care Provider Encounter Details Date Type Department Care Team (Late st Contact Info) Description 05/23/2025 Results Follow-Up [facility] Medicine Rheumatology [address] [facility] 5th [place] [address] [place] [phone] Eliza Leong MD [address] [place] [address] XR Hand Bilateral 3 or More Views of Each, Aldolase, CADE ab eval w/reflex, Additional followed-up results: 7 Social History Tobacco Use Types Packs/Day Years Used Date Smoking Tobacco: Every Day Smokeless Tobacco: Never Alcohol Use Standard Drinks/Week Comments No 0 (1 standard drink = 0.6 oz pur e alcohol) Sex and Gender Information Value Date Recorded Sex Assigned at Not on file Legal Sex Male 8:15 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 Gender Identity Not on file Sexual Orientation Not on file documented as of this encounter Miscellaneous Notes * Result Encounter Note - Eliza Leong MD - 05/23/2025 9:58 AM CDT No signs of inflammatory arthritis Please let patient know and ask him to sign up for [facility] mychart (he has [facility] mychart already) documented in this encounter Plan of Treatment Not on file documented as of this encounter Visit Diagnoses Not on filedocumented in this encounter Care Teams Machine Learning Intern Relationship Specialty Start Date End Date Arleth Moore PA [address] [place] [address] PCP - General Physician Legal Advisor 03/02/24 documented as of this encounter
--- OUTSIDE RECORDS SUMMARY | 2025-06-16 07:36 | XMS_ITS | Encounter Summary ---
Author Organization [employer] Address [address] [place] [address] Care Team Providers Care White Shoe Ragger Name Role Phone Unavailable Primary Care Provider Unavailabl e Encounter Details Date Type Department Care Team (Latest Contact Info) Description 12/07/2005 Outpatient Historical [facility] Fer Cade MD NO ADDRESS ON FILE Plica Syndrome (Primary Dx) Social History Tobacco Use Types Packs/Day Years Used Date Smoking Tobacco: Never Assessed Sex and Gender Information Value Date Recorded Sex Assigned at Not on file Legal Sex Male 5:19 AM DIRECTOR OF ORTHOPEDICS Gender Identity Not on file Sexual Orientation Not on file documented as of this encounter Plan of Treatment Not on file documented as of this encounter Visit Diagnoses Diagnosis Plica syndrome- Primary documented in this encounter
--- OUTSIDE RECORDS SUMMARY | 2025-06-16 07:36 | XMS_ITS | Clinical Summary ---
Author Organization [facility] Address [address] [facility] [place] [address] Care Team Providers Care Hot Walker Name Role Phone Arleth Moore PA-C Primary Care Provider Source Comments [facility],non-owned Affiliates and Associated Physician Practices is amultiple site organization consisting of ambulatory clinics and hospital sitesin [place], [place], [place] and [place]. This disclosure is being madepursuant to the Care Everywhere program and may not contain all information available regarding this patient. Last updated 18.[facility] Allergies Active Allergy Reactions Criticality Noted Date Comments Meloxicam Itching Medium 05/01/2019 Generic is fine, only happens with Brand Name. Nicotine Other Medium 01/23/2025 Heart burn Varenicline Other Medium 01/23/2025 Heart burn Medications * Be aware that medications may not be up to date on this document. Alwaysverify current medications with the patient. gabapentin (Neurontin) 400 MG capsule 4 Active gabapentin (Neurontin) 800 MG tablet TAKE 2 CAPSULES BY MOUTH TWICE DAY 3 Active tretinoin (Retin-A) 0.025 % creamIndicatio ns:Acne Vulgaris Pea sized amount to entire face at night. 30 days supply. Reasons: Common Acne 20 g 3 4 Active clindamycin (Cleocin) 1 % lotion Apply to affected area 2 times daily for folliculitis 60 mL 3 4 Active clobetasol (Temovate) 0.05 % solutionIndica tions:Corticos teroid-Respons yaya Dermatosis Apply scalp daily for psoriasis. 30 days supply. Reasons: Skin Disease Successfully Treated with Steroid Therapy 50 mL 1 5 Active clobetasol (Temovate) 0.05 % ointment Apply to areas of psoriasis on arms, legs, and torso prn twice daily. 30 days supply. 45 g 5 Active traMADol (Ultram) 50 MG tablet Take 1 (one) tablet by mouth every 6 hours as needed for Pain 5 Active clobetasol (Temovate) 0.05 % solution Apply scalp daily for psoriasis. 30 days supply. 50 mL 3 4 025 Discontin ued(Reord er) Active Problems Problem Noted Date Diagnosed Date Other psoriasis 02/04/2024 Hyperlipidemia 01/27/2024 Bunion 08/01/2021 Disorder of skin 08/01/2021 Family history of malignant neoplasm of colon Disorder of skin 08/01/2021 Overview (01/23/2025): folliculitis Encounter for screening for malignant neoplasm o f colon 07/10/2020 Chronic diarrhea 05/15/2020 Tobacco user 05/15/2020 Complex regional pain syndrome 05/11/2018 Pain in left knee 03/31/2016 Overview (01/03/2018): ICD-10 Update Other chronic pain 03/31/2016 Overview (01/03/2018): ICD-10 Update Arthralgia Myalgia Encounters Date Type Department Care Team Description 05/24/2025 Refill [facility] - Dermatology [address] [place] [phone] Christie Quiñones MD MEDICATION REFILL 05/09/2025 10:30 AM CDT Office Visit [facility] - Orthopedics [address] [place] [phone] Ruiz Yang MD S/P shoulder surgery (Primary Dx) 05/09/2025 Travel 04/25/2025 Orders Only [facility] - Orthopedics [address] [place] [phone] Ruiz Yang MD Postoperative pain 04/11/2025 12:00 PM CDT Office Visit [facility] - Orthopedics [address] [facility], [place] [address] Ruiz Yang MD S/P shoulder surgery (Primary Dx) 04/11/2025 Travel 03/27/2025 7:31 AM CDT Anesthesia Event [facility] Op [address] [place] [address] Angi Pascual MD Wirthlin, James D, MD 03/27/2025 7:30 AM CDT - 03/27/2025 9:25 AM CDT Surgery [facility] Op [address] [place] [address] Ruiz Yang MD ARTHROSCOPY SHOULDER ROTATOR CUFF REPAIR (RCR), LABRAL REPAIR 03/27/2025 5:32 AM CDT - 03/27/2025 10:28 AM CDT Hospital Encounter [facility] Op [address] [place] [address] Ruiz Yang MD Surgery General Discharge Disposition: Home or Self Care 03/27/2025 Travel 03/26/2025 Travel from Last 3 Months Immunizations Immunization Administration Dates Next Due FLU VACCINE QUAD IIV4 SPLIT 0.25 ML IM 0 TDAP (7yrs+) 11/04/2020 Family History Medical History Relation Name Comments Hypertension Father Cancer - Rectal Mother Relation Name Status Comments Father Mother Social History Tobacco Use Types Packs/Day Years Used Date Smoking Tobacco: Every Day Cigarettes 1 30.7 Started: 1992 Smokeless Tobacco: Never Alcohol Use Standard Drinks/Week Comments Yes 0 (1 standard drink = 0.6 oz pur e alcohol) rare AUDIT-C Answer Date Recorded Q1: How often do you have a drink containing alc ohol? 2-4 times a month 03/27/2025 Q2: How many drinks containi ng alcohol do you have on a typical day when you are drinking? 3 or 4 03/27/2025 Q3: How often do you have si x or more drinks on one occasion? Less than monthly 03/27/2025 PHQ-2 Answer Date Recorded Patient Health Questionnaire-2 Score 6 06/13/2025 Sex and Gender Information Value Date Recorded Sex Assigned at Not on file Legal Sex Male 5:58 PM AGRICULTURAL PRODUCE PACKER Gender Identity Not on file Sexual Orientation Not on file Last Filed Vital Signs Vital Sign Reading Time Taken Comments Blood Pressure 134/88 03/27/2025 9:58 AM CDT Pulse 72 03/27/2025 10:15 AM CDT Temperature 36.2 C (97.1 F) 03/27/2025 9:58 AM CDT Respiratory Rate 12 03/27/2025 9:50 AM CDT Oxygen Saturation 96% 03/27/2025 10:15 AM CDT Inhaled Oxygen Concentration - - Weight 71.7 kg (158 lb) 03/27/2025 5:50 AM CDT Height 174 cm (5' 8.5) 03/27/2025 5:50 AM CDT Body Mass Index 23.67 03/27/2025 5:50 AM CDT Plan of Treatment Upcoming Encounters Date Type Department Care Team (Late st Contact Info) Description 06/20/2025 11:00 AM CDT Office Visit [facility] - Orthopedics [address] [place] [address], [place] [phone] Ruiz Yang MD [address] [place] [address] [place] [address] Health Maintenance Due Date Last Done Comments COLOGUARD (AGES 45-75) - COL ON CA SCREENING 1977 COLON MONITORING 1977 COLONOSCOPY - COLON CA SCREENING 1977 CT COLONOGRAPHY - COLON CA SCREENING 1977 Colorectal Cancer Screening 1977 FIT - COLON CA SCREENING 1977 FLEX SIG - COLON CA SCREENING 1977 LIPID TESTING 1977 HIV SCREENING 1992 HEPATITIS B VACCINE (1 of 3 - 19+ 3-dose series) 1996 PNEUMOCOCCAL VACCINE (1 of 2 - PCV) 1996 DEPRESSION SCREENING 10/04/2024 COVID-19 VACCINE ( - 2023-2 5 season) 2025 INFLUENZA VACCINE (#1) 2025 07/19/2020 ZOSTER VACCINE (1 of 2) 2027 DTAP/TDAP/TD VACCINES (2 - T d or Tdap) 11/04/2030 11/04/2020 HEPATITIS C SCREENING Completed 10/15/2023 , 05/01/2019 HIB VACCINE Aged Out No longer eligi ble based on patient's age to complete this topic HPV VACCINE Aged Out No longer eligi ble based on patient's age to complete this topic MENINGOCOCCAL (Group B) VACCINE SHARED DECISION-MAKING Aged Out No longer eligible based on patient's age to complete this topic MENINGOCOCCAL GROUPS A/C/Y/W VACCINE Aged Out No longer eligible b ased on patient's age to complete this topic Medical Devices Implanted Type Area Open Die Inspector Device Identifier Shelf Expiration Date Model / Serial / Lot [place] Sut Gryphon Proknot Bcrl Rapide Implanted:Qty : 3 on 03/27/2025 by Ruiz Yang MD at [facility] Left: Shoulder [employer] [id number] 12/02/2027 [id number] / / [id number] [place] S[place] Gryphon Proknot Bcrl Rapide Implanted:Qty : 1 on 03/27/2025 by Ruiz Yang MD at [facility] Left: Shoulder [employer] [id number] 10/03/2026 [id number] / / [id number] Procedures Procedure Name Priority Date/Time Associated Diagnosis Comments CARDIAC RHYTHM STRIP ORDER 03/28/2025 4:37 PM CDT IMAGING/RADIOLOGY/ XRAY RESULTS ORDER 03/28/2025 2:49 PM CDT LA SCOPE SHLDR SURG;W/ROTOR CUFF 03/27/2025 7:21 AM CDT Special Needs 90 MINS, MITEPiper RIOS CONFIRMED [phone] 03/21 LR PERIPHERAL BLOCK Routine 03/27/2025 7:20 AM CDT PERIPHERAL BLOCK Routine 03/27/2025 7:19 AM CDT HEPATITIS C ANTIBODY Routine 10/15/2023 10:01 AM AGRICULTURAL PRODUCE PACKER Psoriasis from Last 3 Months or Most Recently Relevant to Health Maintenance Results * CARDIAC RHYTHM STRIP ORDER (03/28/2025 4:37 PM CDT) Narrative 03/28/2025 4:37 PM CDT Ordered by an unspecified provider. us Scanned Document CARDIAC SERVICES ORDERABLES Fin al Result * IMAGING/RADIOLOGY/XRAY RESULTS ORDER (03/28/2025 2:49 PM CDT) Anatomical Region Laterality Modality Other Narrative 03/28/2025 2:49 PM CDT Ordered by an unspecified provider. us Scanned Document IMAGING Final Result * Peripheral Nerve Block (03/27/2025 7:20 AM CDT) Narrative Brandon Adler MD - 03/27/2025 7:20 AM CDT Brandon Adler MD 03/27/2025 7:21 AM Peripheral Nerve Block Procedure: Peripheral Nerve Block Patient Location: Pre-op Preprocedure Section: Indications: at surgeon's request and postop pain management. Pre-anesthetic Checklist: Patient identified, IV Checked, Site examined and clear, Risks and benefits discussed, Surgical consent verified, Monitors and equipment, Time-out performed, Informed consent obtained, Pre-op evaluation done, Questions answered/anesthesia questions answered, Allergies reviewed and Removal hand/wrist jewelry Monitors: BP, Pulse Ox and EKG. Patient Condition: sedated, meaningful contact maintained throughout procedure Patient Position: sitting Patient Sedated? Yes Sedation Type: mild Procedure Section Laterality: left Block Performed: PEC II/ serratus anterior and supraclavicular Prep: Chloraprep and alcohol Strerile Field: gloves, mask, hat/cap and sterile ultrasound sleeve Needle Type: Echogenic insultaed Needle Gauge: 20 Needle Length: 50 mm Needle Depth: 2 cm Catheter? No Ultrasound Guided? Yes Technique: in plane Visualization: Preliminary scan performed, Important anatomical structures identified, Needle tip visualized throughout the procedure, Target identified, No intraneural or intravascular puncture occurred, Ultrasound image in chart, Local visualized surrounding nerve on ultrasound and Hydrodissection utilized Injection was made incrementally with constant monitoring and aspirations every 5 mL's Injection Assessment: Slow fractionated injection Block Agents or Additives used? Yes Block agents used: bupivacaine PF (MARCAINE PF) 0.5 % injection - Infiltration 20 mL - 03/27/2025 6:51:00 AM Procedure Tolerance: tolerated well Assessment: completed Procedure Start Time: 03/27/2025 6:51 AM. Procedure End Time: 03/27/2025 6:54 AM. Procedure Total Time: 3 minutes. Staff Section Anesthesia Provider: Brandon Adler MD, Performed the procedure us Brandon Adler MD GENERAL ANESTHESIA ORDERABLE S Final Result * Peripheral Nerve Block (03/27/2025 7:19 AM CDT) Narrative Brandon Adler MD - 03/27/2025 7:19 AM CDT Brandon Adler MD 03/27/2025 7:20 AM Peripheral Nerve Block Procedure: Peripheral Nerve Block Patient Location: Pre-op Preprocedure Section: Indications: at surgeon's request and postop pain management. Pre-anesthetic Checklist: Patient identified, IV Checked, Site examined and clear, Risks and benefits discussed, Surgical consent verified, Monitors and equipment, Time-out performed, Informed consent obtained, Pre-op evaluation done, Questions answered/anesthesia questions answered, Allergies reviewed and Removal hand/wrist jewelry Monitors: BP, Pulse Ox and EKG. Patient Condition: sedated, meaningful contact maintained throughout procedure Patient Position: sitting Patient Sedated? Yes Sedation Type: mild Sedation Agents: fentaNYL (PF) (SUBLIMAZE) injection - Intravenous 100 mcg - 03/27/2025 6:49:00 AM midazolam (VERSED) injection - Intravenous 2 mg - 03/27/2025 6:49:00 AM Procedure Section Laterality: left Block Performed: interscalene and PEC II/ serratus anterior Prep: Chloraprep and alcohol Strerile Field: gloves, mask, hat/cap and sterile ultrasound sleeve Needle Type: Echogenic insultaed Needle Gauge: 20 Needle Length: 50 mm Needle Depth: 2 cm Catheter? No Ultrasound Guided? Yes Technique: in plane Visualization: Preliminary scan performed, Important anatomical structures identified, Needle tip visualized throughout the procedure, Target identified, No intraneural or intravascular puncture occurred, Ultrasound image in chart, Local visualized surrounding nerve on ultrasound and Hydrodissection utilized Injection was made incrementally with constant monitoring and aspirations every 5 mL's Injection Assessment: Slow fractionated injection Block Agents or Additives used? Yes Block agents used: bupivacaine PF (MARCAINE PF) 0.5 % injection - Infiltration 15 mL - 03/27/2025 6:50:00 AM bupivacaine liposome (EXPAREL) 1.3 % injection - Infiltration 10 mL - 03/27/2025 6:50:00 AM Procedure Tolerance: tolerated well Assessment: completed Procedure Start Time: 03/27/2025 6:49 AM. Procedure End Time: 03/27/2025 6:50 AM. Procedure Total Time: 1 minutes. Staff Section Anesthesia Provider: Brandon Adler MD, Performed the procedure us Brandon Adler MD GENERAL ANESTHESIA ORDERABLE S Final Result * HEPATITIS C ANTIBODY (10/15/2023 10:01 AM AGRICULTURAL PRODUCE PACKER) Hepatitis C Antibody Non-react yaya Non-reac tive 10/15/2023 10:59 AM AGRICULTURAL PRODUCE PACKER [facility] Comment:Hepatitis C Antibody screen indicates no serologic evidence of past or current infection with Hepatitis C Virus. Patients with unexplained liver disease who are immunocompromised or suspected of having acute Hepatitis C infection may benefit from Nucleic Acid Test (AINSELY) for Hepatitis C Viral RNA to confirm Hepatitis C status. Blood BLOOD SPECIMEN / Unknown Lab Venipuncture / Unknown 10/15/2023 10:01 AM AGRICULTURAL PRODUCE PACKER 10/15/2023 10:08 AM AGRICULTURAL PRODUCE PACKER us Christie Quiñones MD LAB - CHEMISTRY ORDERA BLES Final Result [facility] [address] [place] [address], [place] [phone] from Last 3 Months or Most Recently Relevant to Health Maintenance Insurance [facility] Care Teams Hot Walker Relationship Specialty Start Date End Date Arleth Moore PA-C [address] [place] [phone] PCP - General 03/27/25
--- OUTSIDE RECORDS SUMMARY | 2025-06-16 07:36 | XMS_ITS | Clinical Summary ---
Author Organization [facility] al Address [address] [place] [address] Care Team Providers Care Supervisor Fishing Name Role Phone Arleth Moore Primary Care Provider Allergies Active Allergy Reactions Criticality Noted Date Comments Meloxicam Itching Medium 04/07/2016 Generic is fine, only happens with Brand Name. Nicotine Blisters,Other (See comments) High 02/04/2021 Heart burn Varenicline Blisters,Other (See comments) High 01/23/2025 Heart burn Medications zolpidem (AMBIEN) 10 mg tabletIndicati ons:Sleep-Onse t Insomnia Take 1 tablet by mouth nightly. Active celecoxib (CeleBREX) 400 mg capsule Take 1 capsule by mouth daily. Active citalopram (CeleXA) 20 mg tablet Take 1 tablet by mouth daily. Active baclofen (LIORESAL) 10 mg tablet every 8 hours. Activ e nortriptyline (PAMELOR) 25 mg capsule TAKE 3 CAPSULES BY MOUTH EVERY NIGHT 270 capsule 03/01/20 19 Active Additional Information Patient not taking.Reported on 05/23/2025 calcipotriene (DOVONOX) 0.005 % cream APPLY TO PSORIASIS ON SCALP AND TRUNK TWICE A DAY WEDNESDAY- ALTERNATING WITH CLOBETASOL Active adalimumab (Humira,CF, Pen Gxdx-Fw-Cwgu HS) 80 mg/0.8 mL-40 mg/0.4 mL pen injector kit Injust 80 mg subcutaneously on day 1. Then inject 40 mg subcutaneously on Day 8 and Day 22. 02/04/20 24 Active clindamycin (CLEOCIN T) 1 % lotion APPLY TO AFFECTED AREA 2 TIMES DAILY FOR FOLLICULITIS 10/15/19 24 Active clobetasoL (TEMOVATE) 0.05 % external solution APPLY SCALP DAILY FOR PSORIASIS. 30 DAYS SUPPLY. 10/15/19 24 Active hydrOXYzine (ATARAX) 50 mg tablet TAKE 1 TABLET 3 TIMES A DAY BY ORAL ROUTE NEEDED FOR 30 DAYS, FOR ANXIETY. 02/16/20 24 Active tretinoin (RETIN-A) 0.025 % cream Pea sized amount to entire face at night. 30 days supply. Reasons: Common Acne 10/15/19 24 Active gabapentin (NEURONTIN) 400 mg capsule TAKE 2 CAPSULES TWICE A DAY BY MOUTH NEEDED FOR 30 DAYS. 05/06/20 25 Active gabapentin (NEURONTIN) 800 mg tablet TAKE 2 TABLETS BY MOUTH TWICE A DAY DIRECTED 05/06/20 25 Active gabapentin (NEURONTIN) 300 mg capsule Take 3 capsules (900 mg total) by mouth nightly. 90 capsule 2 06/08/20 18 025 Discontin ued(Dupli samaria order) Active Problems Problem Noted Date Diagnosed Date Pain of left lower extremity 02/23/2017 Knee pain 04/07/2016 Other chronic pain 04/07/2016 Encounters Date Type Department Care Team Description 05/23/2025 9:06 AM CDT - 05/23/2025 11:59 PM T Hospital Encounter [facility] of [address] [address] Psoriasis; Arthralgia, unspecified joint; Anti-AMMUNITION SPECIALIST antibodies present; Bilateral hand pain; Chronic SI joint pain Discharge Disposition: Discharge to home or self care 05/23/2025 9:02 AM CDT - 05/23/2025 11:59 PM CDT Hospital Encounter [facility] [address] [place] [id number] Eliza Leong MD Psoriasis; Arthralgia, unspecified joint; Anti-AMMUNITION SPECIALIST antibodies present; Bilateral hand pain; Chronic SI joint pain Discharge Disposition: Discharge to home or self care 05/23/2025 9:00 AM CDT [facility]ology Metabolism and Lipid [address] [place] [address] for Advanced Medicine 5th [place] [address] [place] [id number] Psoriasis; Arthralgia, unspecified joint; Anti-AMMUNITION SPECIALIST antibodies present; Bilateral hand pain; Chronic SI joint pain 05/23/2025 8:20 AM CDT Office Visit [facility] Medicine Rheumatology [address] [facility] [address] 5th [place] [address] [place] [phone] Eliza Leong MD Psoriasis (Primary Dx); Arthralgia, unspecified joint; Anti-AMMUNITION SPECIALIST antibodies present; Bilateral hand pain; Chronic SI joint pain 05/23/2025 Results Follow-Up [facility] Medicine Rheumatology [address] [facility] [address] [place] [address] [place] [address] Eliza Leong MD XR Hand Bilateral 3 or More Views of Each, Aldolase, CADE ab eval w/reflex, Additional followed-up results: 7 from Last 3 Months Surgical History Surgery Date Site/Laterality Comments KNEE ARTHROSCOPY Knee Arthroscopy - Left Olga Lidia 2011 (Added by TW Conv) NERVE BLOCK Nerve Block - left genicular (Added by TW Conv) FLUORO GUIDED INJECTION SHOULDER LEFT 03/13/2024 Left FLUORO GUIDED ASPIRATION OR INJECTION LARGE JOINT LEFT 12/13/2024 Left Medical History Medical History Date Comments Personal history of other me ntal and behavioral disorders History of depression - (Add ed by TW Conv) Personal history of other sp ecified conditions History of insomnia - (Added by TW Conv) Chronic pain Psoriasis Dentures complicating chewing Family History Medical History Relation Name Comments Arthritis Father Cancer Mother Rheum arthritis Paternal Grandmother Relation Name Status Comments Father Alive Mother Alive Paternal Grandmother Social History Tobacco Use Types Packs/Day Years Used Date Smoking Tobacco: Every Day Smokeless Tobacco: Never Tobacco Cessation:Ready to Q uit: Not Asked; Counseling Given: Not Answered Alcohol Use Standard Drinks/Week Comments No 0 (1 standard drink = 0.6 oz pur e alcohol) Sex and Gender Information Value Date Recorded Sex Assigned at Not on file Legal Sex Male 8:15 AM SEAFOOD SPECIALIST Gender Identity Not on file Sexual Orientation Not on file Obstetrics History Last Filed Vital Signs Vital Sign Reading Time Taken Comments Blood Pressure 119/82 05/23/2025 8:09 AM CDT Pulse 96 05/23/2025 8:09 AM CDT Temperature 36.2 C (97.2 F) 09/16/2018 10:59 AM SEAFOOD SPECIALIST Respiratory Rate 20 09/16/2018 10:5 9 AM SEAFOOD SPECIALIST Oxygen Saturation 99% 05/23/2025 8:09 AM CDT Inhaled Oxygen Concentration - - Weight 66.6 kg (146 lb 12.8 oz) 05/23/2025 8:09 AM CDT Height 174 cm (5' 8.5) 05/23/2025 8:09 AM CDT Body Mass Index 22 05/23/2025 8:09 AM CDT Plan of Treatment Health Maintenance Due Date Last Done Comments Colon Cancer Screening-Colonoscopy 1977 Depression Screening 1977 Hepatitis B Screening 1995 Regular Well Visit/Exam 18-64 1995 Pneumococcal vaccine <65 (1 of 2 - PCV) 1996 Influenza Vaccine (#1) 2025 07/19/2020, 2019 DTaP/Tdap/Td Vaccine (2 - Td or Tdap) 11/04/203010/2020 Hepatitis C Screening Completed 08/19/2018 Procedures Procedure Name Priority Date/Time Associated Diagnosis Comments XR HAND BILATERAL 3 OR MORE VIEWS OF EACH Schedule Routine, Read Routine (OP Routine) 05/23/2025 9:24 AM CDT Psoriasis Arthralgia, unspecified joint Anti-AMMUNITION SPECIALIST antibodies present Bilateral hand pain Chronic SI joint pain XR SACROILIAC JOINTS 3 OR MORE VIEWS Schedule Routine, Read Routine (OP Routine) 05/23/2025 9:24 AM CDT Psoriasis Arthralgia, unspecified joint Anti-AMMUNITION SPECIALIST antibodies present Bilateral hand pain Chronic SI joint pain MICHAEL QUALITATIVE WITH REFLEX TO MICHAEL QUANTITATIVE Routine 05/23/2025 8:53 AM CDT Psoriasis Arthralgia, unspecified joint Anti-AMMUNITION SPECIALIST antibodies present Bilateral hand pain Chronic SI joint pain HAVEN-1 ANTIBODY Routine 05/23/2025 8:53 AM CDT Psoriasis Arthralgia, unspecified joint Anti-AMMUNITION SPECIALIST antibodies present Bilateral hand pain Chronic SI joint pain SCL 70 ANTIBODIES Routine 05/23/2025 8:5 3 AM CDT Psoriasis Arthralgia, unspecified joint Anti-AMMUNITION SPECIALIST antibodies present Bilateral hand pain Chronic SI joint pain AMMUNITION SPECIALIST ANTIBODIES Routine 05/23/2025 8:53 AM CDT Psoriasis Arthralgia, unspecified joint Anti-AMMUNITION SPECIALIST antibodies present Bilateral hand pain Chronic SI joint pain VALENCIA ANTIBODIES Routine 05/23/2025 8:53 AM CDT Psoriasis Arthralgia, unspecified joint Anti-AMMUNITION SPECIALIST antibodies present Bilateral hand pain Chronic SI joint pain SJOGRENS SYNDROME-B ANTIBODY Routine 05/23/2025 8:53 AM CDT Psoriasis Arthralgia, unspecified joint Anti-AMMUNITION SPECIALIST antibodies present Bilateral hand pain Chronic SI joint pain SJOGRENS SYNDROME-A ANTIBODY Routine 05/23/2025 8:53 AM CDT Psoriasis Arthralgia, unspecified joint Anti-AMMUNITION SPECIALIST antibodies present Bilateral hand pain Chronic SI joint pain ANTI-DOUBLE STRANDED DNA ANTIBODIES Routine 05/23/2025 8:53 AM CDT Psoriasis Arthralgia, unspecified joint Anti-AMMUNITION SPECIALIST antibodies present Bilateral hand pain Chronic SI joint pain CADE ANTIBODY EVALUATION WITH REFLEX Routine 05/23/2025 8:53 AM CDT Psoriasis Arthralgia, unspecified joint Anti-AMMUNITION SPECIALIST antibodies present Bilateral hand pain Chronic SI joint pain ALDOLASE Routine 05/23/2025 8:53 AM CDT Psoriasis Arthralgia, unspecified joint Anti-AMMUNITION SPECIALIST antibodies present Bilateral hand pain Chronic SI joint pain VITAMIN D 25 HYDROXY Routine 05/23/2025 8:53 AM CDT Psoriasis Arthralgia, unspecified joint Anti-AMMUNITION SPECIALIST antibodies present Bilateral hand pain Chronic SI joint pain CREATINE KINASE (CK), TOTAL Routine 05/23/2025 8:53 AM CDT Psoriasis Arthralgia, unspecified joint Anti-AMMUNITION SPECIALIST antibodies present Bilateral hand pain Chronic SI joint pain CRP (ACUTE PHASE) Routine 05/23/2025 8:5 3 AM CDT Psoriasis Arthralgia, unspecified joint Anti-AMMUNITION SPECIALIST antibodies present Bilateral hand pain Chronic SI joint pain ERYTHROCYTE SEDIMENTATION RATE Routine 05/23/2025 8:53 AM CDT Psoriasis Arthralgia, unspecified joint Anti-AMMUNITION SPECIALIST antibodies present Bilateral hand pain Chronic SI joint pain COMPREHENSIVE METABOLIC PANEL Routine 05/23/2025 8:53 AM CDT Psoriasis Arthralgia, unspecified joint Anti-AMMUNITION SPECIALIST antibodies present Bilateral hand pain Chronic SI joint pain CBC WITH AUTO DIFFERENTIAL Routine 05/23/2025 8:53 AM CDT Psoriasis Arthralgia, unspecified joint Anti-AMMUNITION SPECIALIST antibodies present Bilateral hand pain Chronic SI joint pain HEPATITIS C ANTIBODY Routine 08/19/2018 3:25 PM SEAFOOD SPECIALIST Chronic pain of left knee Myalgia Arthralgia, unspecified joint BMI 27.0-27.9,adult from Last 3 Months or Most Recently Relevant to Health Maintenance Results * XR Hand Bilateral 3 or More Views of Each (05/23/2025 9:24 AM CDT) Anatomical Region Laterality Modality Upper Extremities, Hand Computed Radiography 05/23/2025 9:40 AM CDT Impressions 05/23/2025 9:40 AM CDT 1. No radiographic findings of inflammatory arthritis in the hands and sacroiliac joints. 2. Mild osteoarthritis at the bilateral 1st carpometacarpal and left triscaphe joints. Electronically signed by: Dandre Shultz M.D. Narrative 05/23/2025 9:40 AM CDT EXAMINATION: XR SACROILIAC JOINTS 3 OR MORE VIEWS, XR HAND BILATERAL 3 OR MORE VIEWS OF EACH HISTORY: Psoriasis, arthralgias FINDINGS: Sacroiliac joints: 3 view examination of the sacroiliac joints is read without comparison. The joint spaces are normal and symmetric. There is no erosion, sacroiliitis, or ankylosis. There is no fracture. Hands: 3 view examinations of both hands are compared with studies from 08/19/2018. There is mild bilateral 1st carpometacarpal and left triscaphe osteoarthritis, with small subchondral cysts at the triscaphe joint. Joint spaces are otherwise normal and symmetric. There is no erosion, periostitis, or ankylosis. There is no fracture. Procedure Note Dandre Shultz MD - 05/23/2025 EXAMINATION: XR SACROILIAC JOINTS 3 OR MORE VIEWS, XR HAND BILATERAL 3 OR MORE VIEWS OF EACH HISTORY: Psoriasis, arthralgias FINDINGS: Sacroiliac joints: 3 view examination of the sacroiliac joints is read without comparison. The joint spaces are normal and symmetric. There is no erosion, sacroiliitis, or ankylosis. There is no fracture. Hands: 3 view examinations of both hands are compared with studies from 08/19/2018. There is mild bilateral 1st carpometacarpal and left triscaphe osteoarthritis, with small subchondral cysts at the triscaphe joint. Joint spaces are otherwise normal and symmetric. There is no erosion, periostitis, or ankylosis. There is no fracture. IMPRESSION: 1. No radiographic findings of inflammatory arthritis in the hands and sacroiliac joints. 2. Mild osteoarthritis at the bilateral 1st carpometacarpal and left triscaphe joints. Electronically signed by: Dandre Shultz M.D. us Eliza Leong MD IMG XR PROCEDURES Final Res ult * X-ray sacroiliac joints 3+ views (05/23/2025 9:24 AM CDT) Anatomical Region Laterality Modality Pelvis, Body N/A Computed Radiogr aphy 05/23/2025 9:40 AM CDT Impressions 05/23/2025 9:40 AM CDT 1. No radiographic findings of inflammatory arthritis in the hands and sacroiliac joints. 2. Mild osteoarthritis at the bilateral 1st carpometacarpal and left triscaphe joints. Electronically signed by: Dandre Shultz M.D. Narrative 05/23/2025 9:40 AM CDT EXAMINATION: XR SACROILIAC JOINTS 3 OR MORE VIEWS, XR HAND BILATERAL 3 OR MORE VIEWS OF EACH HISTORY: Psoriasis, arthralgias FINDINGS: Sacroiliac joints: 3 view examination of the sacroiliac joints is read without comparison. The joint spaces are normal and symmetric. There is no erosion, sacroiliitis, or ankylosis. There is no fracture. Hands: 3 view examinations of both hands are compared with studies from 08/19/2018. There is mild bilateral 1st carpometacarpal and left triscaphe osteoarthritis, with small subchondral cysts at the triscaphe joint. Joint spaces are otherwise normal and symmetric. There is no erosion, periostitis, or ankylosis. There is no fracture. Procedure Note Dandre Shultz MD - 05/23/2025 EXAMINATION: XR SACROILIAC JOINTS 3 OR MORE VIEWS, XR HAND BILATERAL 3 OR MORE VIEWS OF EACH HISTORY: Psoriasis, arthralgias FINDINGS: Sacroiliac joints: 3 view examination of the sacroiliac joints is read without comparison. The joint spaces are normal and symmetric. There is no erosion, sacroiliitis, or ankylosis. There is no fracture. Hands: 3 view examinations of both hands are compared with studies from 08/19/2018. There is mild bilateral 1st carpometacarpal and left triscaphe osteoarthritis, with small subchondral cysts at the triscaphe joint. Joint spaces are otherwise normal and symmetric. There is no erosion, periostitis, or ankylosis. There is no fracture. IMPRESSION: 1. No radiographic findings of inflammatory arthritis in the hands and sacroiliac joints. 2. Mild osteoarthritis at the bilateral 1st carpometacarpal and left triscaphe joints. Electronically signed by: Dandre Shultz M.D. Eliza Leong MD IMG XR PROCEDURES Final Res ult * MICHAEL ab ql w/rflx to MICHAEL qn (05/23/2025 8:53 AM CDT) MICHAEL Negative Comment: Interpretive Data Normal range for MICHAEL Qualitative Antibody = Negative. 1. MICHAEL is performed using indirect immunofluorescence against HEp-2 cells 2. MICHAEL titers are performed on all positive qualitative results. 3. A significantly positive MICHAEL result is defined as a positive nuclear fluorescence at a titer of 1:80 or greater. 4. 15% of normal people above age 65 have significantly positive MICHAEL results. 5% or less of normal people age 65 or under have significantly positive MICHAEL results. Current interpretive data was last revised on 2020. Blood 05/23/2025 8:53 AM CDT 05/23/2025 9:19 AM CDT Eliza Leong MD LAB BLOOD ORDERABLES Final Result Performing Organization Address [facility] de Phone Number [facility] [place] [place] [address] * Anti-double stranded DNA abs (05/23/2025 8:53 AM CDT) dsDNA Ab <1.0 <=4.0 IUnits/mL Comment: Interpretive Data Negative: < or = 4 IUnits/mL Indeterminate: 5 - 9 IUnits/mL Positive: > or = 10 IUnits/mL Current interpretive data was last revised on 2017. Blood 05/23/2025 8:53 AM CDT 05/23/2025 9:19 AM CDT us Eliza Leong MD LAB BLOOD ORDERABLES Final Result Performing Organization Address [facility] de Phone Number [facility] [place] [place] [address] * SCL 70 abs (05/23/2025 8:53 AM CDT) Anti-Scl70, IgG <0.2 <=0.9 Ab Index Comment: Interpretive Data Negative: < 1.0 Ab Index Positive: > or = 1.0 Ab Index Current interpretive data was last revised on 2017. Blood 05/23/2025 8:53 AM CDT 05/23/2025 9:25 AM CDT us Eliza Leong MD LAB BLOOD ORDERABLES Final Result Performing Organization Address [facility] Co de Phone Number [facility] [place] [place] [address] * Valencia abs (05/23/2025 8:53 AM CDT) Pathologist [facility] Anti-CADE, SM <0.2 <=0.9 Ab Index Comment: Interpretive Data Negative: < 1.0 Ab Index Positive: > or = 1.0 Ab Index Current interpretive data was last revised on 2017. Blood 05/23/2025 8:53 AM CDT 05/23/2025 9:25 AM CDT Eliza Leong MD LAB BLOOD ORDERABLES Final Result Performing Organization Address [facility] de Phone Number [facility] [place] [place] [address] * (ABNORMAL) AMMUNITION SPECIALIST abs (05/23/2025 8:53 AM CDT) Pathologist [facility] AMMUNITION SPECIALIST ab 2.0(H) <=0.9 Ab Index Comment: Interpretive Data Negative: < 1.0 Ab Index Positive: > or = 1.0 Ab Index Current interpretive data was last revised on 2017. Blood 05/23/2025 8:53 AM CDT 05/23/2025 9:25 AM CDT Eliza Leong MD LAB BLOOD ORDERABLES Final Result Performing Organization Address City/[facility] Co de Phone Number [facility] [place] [place] [address] * (ABNORMAL) CADE ab eval w/reflex (05/23/2025 8:53 AM CDT) Pathologist [facility] CADE ab Positive( A) Negative Comment: Interpretive Data Positive Screens will be reflexed to specific testing for Antibodies against the following antigens: Haven-1 Ab, AMMUNITION SPECIALIST Ab, Scl-70 Ab, Valencia Ab, SS-A/Ro Ab, and SS- B/La Ab. Further testing for dsDNA, Centromere, or Ribosomal P antibodies is suggested in patient with a positive screen and negative specific antibodies. Current interpretive data was last revised on 2023. Blood 05/23/2025 8:53 AM CDT 05/23/2025 9:19 AM CDT Eliza Leong MD LAB BLOOD ORDERABLES Final Result Performing Organization Address [facility] Co de Phone Number [facility] [place] [place] [address] * Haven-1 antibody (05/23/2025 8:53 AM CDT) Pathologist [facility] Haven 1 Antibody, IgG <0.2 <=0.9 Ab Index Comment: Interpretive Data Negative: < 1.0 Ab Index Positive: > or = 1.0 Ab Index Current interpretive data was last revised on 2017. Blood 05/23/2025 8:53 AM CDT 05/23/2025 9:25 AM CDT Eliza Leong MD LAB BLOOD ORDERABLES Final Result Performing Organization Address [facility] de Phone Number [facility] [place] [place] [address] * (ABNORMAL) CBC with auto differential (05/23/2025 8:53 AM CDT) White Blood Count 8.6 3.6 - 11.2 K/uL [facility] RBC 5.28 4.06 - 5.63 M/uL [facility] Hemoglobin 16.5 13.0 - 17.5 g/dL [facility] Hematocrit 47.7 40.7 - 50.3 % [facility] MCV 90.3 80.0 - 97.6 fL [facility] MCH 31.2 26.7 - 33.7 pg [facility] MCHC 34.5 32.7 - 35.5 g/dL [facility] RBC Dist Width 12.7 12.3 - 17.0 % [facility] Platelet Count 272 140 - 440 K/uL [facility] MPV 10.0 6.8 - 10.4 fL [facility] Neutrophils % 78.1(H) 38.7 - 74.5 % [facility] Lymphocyte % 13.4(L) 20.0 - 54.3 % [facility] Monocytes % 5.5 4.3 - 13.5 % [facility] Eosinophils % 2.0 0.0 - 6.0 % [facility] Basophil % 1.0 0.0 - 3.0 % [facility] Absolute Neutrophil 6.7(H) 1.8 - 6.6 K/uL [facility] Absolute Lymphocyte 1.2 0.8 - 3.3 K/uL [facility] Absolute Monocyte 0.5 0.2 - 1.2 K/uL [facility] Absolute Eosinophil 0.2 0.0 - 0.5 K/uL [facility] Absolute Basophil 0.1 0.0 - 0.2 K/uL [facility] Nucleated RBC % 0.2 0.0 - 0.4 /100 WBC [facility] Blood 05/23/2025 8:53 AM CDT 05/23/2025 9:30 AM CDT us Eliza Leong MD LAB BLOOD ORDERABLES Final Result [facility] * Aldolase (05/23/2025 8:53 AM CDT) Pathologist [facility] Aldolase 5.4 0.1 - 8.0 Units/L Blood 05/23/2025 8:53 AM CDT 05/23/2025 9:19 AM CDT Eliza Leong MD LAB BLOOD ORDERABLES Final Result [facility] [place] [address] * Vitamin D 25 hydroxy (05/23/2025 8:53 AM CDT) Vitamin D 34.7 20.0 - 100.0 ng/mL [facility] Comment: VITAMIN D DEFICIENCY = LESS THAN or EQUAL TO 20 ng/mL VITAMIN D INSUFFICIENCY = 21 - 29 ng/mL VITAMIN D SUFFICIENT = 30-100 ng/mL Blood 05/23/2025 8:53 AM CDT 05/23/2025 9:30 AM CDT lEiza Leong MD LAB BLOOD ORDERABLES Final Result [facility] * Sjogren's syndrome B ab (05/23/2025 8:53 AM CDT) Anti-CADE, SS-B <0.2 <=0.9 Ab Index Comment: Interpretive Data Negative: < 1.0 Ab Index Positive: > or = 1.0 Ab Index Current interpretive data was last revised on 2017. Blood 05/23/2025 8:53 AM CDT 05/23/2025 9:25 AM CDT Eliza Leong MD LAB BLOOD ORDERABLES Final Result Performing Organization Address City/[facility]/ZIP Co de Phone Number [facility] [place] [address] * Sjogren's syndrome A ab (05/23/2025 8:53 AM CDT) Anti-CADE, SS-A <0.2 <=0.9 Ab Index Comment: Interpretive Data Negative: < 1.0 Ab Index Positive: > or = 1.0 Ab Index Current interpretive data was last revised on 2017. Blood 05/23/2025 8:53 AM CDT 05/23/2025 9:25 AM CDT Eliza Leong MD LAB BLOOD ORDERABLES Final Result [facility] Department [place] [address] * Erythrocyte sedimentation rate (05/23/2025 8:53 AM CDT) Erythrocyte Sedimentation Rate 13 <15 mm/hr [facility] Blood 05/23/2025 8:53 AM CDT 05/23/2025 9:30 AM CDT us Eliza Leong MD LAB BLOOD ORDERABLES Final Result [facility] * CRP (acute phase) (05/23/2025 8:53 AM CDT) C-Reactive Protein, Acute <3.0 <5.0 mg/L [facility] Blood 05/23/2025 8:53 AM CDT 05/23/2025 9:30 AM CDT us Eliza Leong MD LAB BLOOD ORDERABLES Final Result Performing Organization Address City/[facility]/ZIP Co de Phone Number [facility] * Creatine kinase (CK), total (05/23/2025 8:53 AM CDT) CK, Total 46 26 - 308 IU/L [facility] Blood 05/23/2025 8:53 AM CDT 05/23/2025 9:30 AM CDT us Eliza Leong MD LAB BLOOD ORDERABLES Final Result [facility] * (ABNORMAL) Comprehensive metabolic panel (05/23/2025 8:53 AM CDT) Total Protein 7.2 6.1 - 8.4 g/dL [facility] Albumin 4.3 3.5 - 5.2 g/dL [facility] Calcium 9.7 8.6 - 10.3 mg/dL [facility] BUN 5(L) 7 - 23 mg/dL [facility] Total Bilirubin 0.32 0.20 - 1.40 mg/dL [facility] Alk Phos, Total 93 35 - 129 IU/L [facility] AST (SGOT) 16 11 - 47 IU/L [facility] ALT (SGPT) 20 6 - 53 IU/L [facility] Creatinine 0.82 0.70 - 1.30 mg/dL [facility] Sodium 142 135 - 145 mmol/L [facility] Potassium 4.2 3.3 - 5.1 mmol/L [facility] Chloride 105 95 - 107 mmol/L [facility] CO2 Content 26 21 - 29 mmol/L [facility] Glucose 102(H) 64 - 99 mg/dL [facility] Comment: NONFASTING GLUCOSE RANGE = 64-199 mg/dL FASTING GLUCOSE 64 - 99 = NORMAL FASTING GLUCOSE 100 - 125 = IMPAIRED FASTING GLUCOSE FASTING GLUCOSE >=126 = PROVISIONAL DIAGNOSIS OF DIABETES eGFR >90.0 >60.0 mL/min/1.7 3 m2 [facility] Blood 05/23/2025 8:53 AM CDT 05/23/2025 9:30 AM CDT us Eliza Leong MD LAB BLOOD ORDERABLES Final Result [facility] * Hepatitis C antibody (08/19/2018 3:25 PM SEAFOOD SPECIALIST) Hep C Ab Non-Reactiv e Non-Reactiv e [facility] Blood specimen (specimen) 08/19/2018 3:25 PM SEAFOOD SPECIALIST 08/19/2018 9:29 PM SEAFOOD SPECIALIST Narrative [facility] - 08/19/2018 10:15 PM SEAFOOD SPECIALIST us Agueda Simon MD LAB MICROBIOLOGY - GENERAL ORDERABLES Final Result [facility] [facility] [address] Department [place] [address] from Last 3 Months or Most Recently Relevant to Health Maintenance Insurance [facility] MEDICAID [facility] Care Teams Supervisor Fishing Relationship Specialty Start Date End Date Arleth Moore PA [address] [place] [address] PCP - General Physician Director Construction Services 03/02/24
--- OUTSIDE RECORDS SUMMARY | 2025-06-16 07:36 | XMS_ITS | Encounter Summary ---
Author Organization [facility] Address [address] [place] [address] Care Team Providers Care Health Safety Coordinator Name Role Phone Unavailable Primary Care Provider Unavailabl e Encounter Details Date Type Department Care Team (Latest Contact Info) Description 05/17/2006 Outpatient Historical [facility] Fer Cade MD NO ADDRESS ON FILE Plica Syndrome (Primary Dx) Social History Tobacco Use Types Packs/Day Years Used Date Smoking Tobacco: Never Assessed Sex and Gender Information Value Date Recorded Sex Assigned at Not on file Legal Sex Male 5:19 AM GROCERY CHECKER Gender Identity Not on file Sexual Orientation Not on file documented as of this encounter Plan of Treatment Not on file documented as of this encounter Visit Diagnoses Diagnosis Plica syndrome- Primary documented in this encounter
--- OUTSIDE RECORDS SUMMARY | 2025-06-16 07:36 | XMS_ITS | Encounter Summary ---
Author Organization [facility] Address [address] [place] [address] Care Team Providers Care Policeman Name Role Phone Mary Burns MD Primary Care Provider [phone] Arleth Moore PA-C Primary Care Provider [phone] Reason for Visit * Reason Onset Date Comments Referral 03/09/2024 Encounter Details Date Type Department Care Team (Late st Contact Info) Description 03/09/2024 Telephone [facility] - Centralized Scheduling [address] [place] [phone] Christie Quiñones MD [address] [facility] 3 [place] [address] Referral Social History Tobacco Use Types Packs/Day Years Used Date Smoking Tobacco: Every Day Cigarettes Smokeless Tobacco: Never Alcohol Use Standard Drinks/Week Comments Yes 0 (1 standard drink = 0.6 oz pur e alcohol) rare Sex and Gender Information Value Date Recorded Sex Assigned at Not on file 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 Upon investigating, the computer had it as a future order that needed to be released--I released it today, which should fix it. Please have pt let us know if any more issues. Thank you * Telephone Encounter - Eugenie Meeks - 03/09/2024 12:35 PM CDT Pt called in requesting referral to rheumatology. Pt can be reached at [phone] . documented in this encounter Plan of Treatment Upcoming Encounters Date Type Department Care Team (Late st Contact Info) Description 06/20/2025 11:00 AM CDT Office Visit [facility] - Orthopedics [address] [place] [address], [place] [phone] Ruiz Yang MD [address] [place] [address] [place] [address] documented as of this encounter Visit Diagnoses Not on filedocumented in this encounter Care Teams Policeman Relationship Specialty Start Date End Date Mary Burns MD [address] [place] [phone] PCP - General Family Medicine 05/01/19 03/26/25 Arleth Moore PA-C [address] [place] [phone] PCP - General 03/27/25 documented as of this encounter
--- OUTSIDE RECORDS SUMMARY | 2025-06-16 07:36 | XMS_ITS | Encounter Summary ---
Author Organization [facility] Address [address] [place], [place] [address] [address] Care Team Providers Care Director Strategic Account Management Name Role Phone Mary Burns MD Primary Care Provider [phone] Arleth Moore PA-C Primary Care Provider [phone] Reason for Visit * Reason Onset Date Comments Medication Issue 12/24/2023 Encounter Details Date Type Department Care Team (Late st Contact Info) Description 12/24/2023 Telephone [facility] - Dermatology [address] [place] [address], [facility] [place] [phone] Christie Quiñones MD [address] [place] [address] [address] [place] [address] Medication Issue Social History Tobacco Use Types Packs/Day Years Used Date Smoking Tobacco: Every Day Cigarettes Smokeless Tobacco: Never Alcohol Use Standard Drinks/Week Comments Yes 0 (1 standard drink = 0.6 oz pur e alcohol) rare Sex and Gender Information Value Date Recorded Sex Assigned at Not on file 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 Zarina Finley- Pharmacy Casing Crew (Dermatology) * Telephone Encounter - Zarina Finley - 02/16/2024 7:34 AM CDT Faxed [employer] Application along with prior auth denial and appeal denial letter. I sent patient an email stating I will need him to send copies of his new insurance card. We have images of his old [employer] card. He does not have My[employer] so I let him know he can just email the images to me. Zarina Finley * Telephone Encounter - Zarina Finley - 02/14/2024 3:01 PM CDT Patient portion of [employer] enrollment for faxed to patient. Zarina Finley * Telephone Encounter - Zarina Finley - 02/07/2024 11:55 AM CDT Appeal Denied: Patient must try and fail at least 3 consecutive months with systemic treatment (Mtx, or cyclosporine). I routed denial letter to Dr. Quiñones. Zarina Finley * Telephone Encounter - Christie Quiñones MD - 12/28/2023 3:00 PM CDT Called patient back about psoriasis flare. No answer, left message to call back clinic to further discuss flare and medication options. Christie Quiñones MD Clinical Airport Operations Duty Manager of Dermatology [facility] * Telephone Encounter - Laya Coelho - 12/24/2023 10:56 AM CDT Pt is having a psoriasis flare up and would like to request Cyclosporine medication sent to [facility] in [facility] on [address] documented in this encounter Plan of Treatment Upcoming Encounters Date Type Department Care Team (Late st Contact Info) Description 06/20/2025 11:00 AM CDT Office Visit [facility] - Orthopedics [address] [place] [address], [place] [address] Ruiz Yang MD [address] [place] [address] [place] [address] documented as of this encounter Visit Diagnoses Not on filedocumented in this encounter Care Teams Director Strategic Account Management Relationship Specialty Start Date End Date Mary Burns MD [facility] [place] [phone] PCP - General Family Medicine 05/01/19 03/26/25 Arleth Moore PA-C [address] [place] [phone] PCP - General 03/27/25 documented as of this encounter
--- OUTSIDE RECORDS SUMMARY | 2025-06-16 07:37 | XMS_ITS | Clinical Summary ---
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
[2025-06-16 07:39] VITALS: BP 153/104; PULSE 75; RESP 18; TEMP 37; O2SAT 100
[2025-06-16 07:55] LABS: Hematocrit 47.4 % (42.0-52.0); Hemoglobin 16.1 g/dL (14.0-18.0); Immature Granulocyte Percent A 0.2 % (0-0.5); Lymphocytes Absolute Auto 1.64 K/mm3 (0.9-3.2); Mean Corpuscular HGB Conc 34.0 g/dl (32-36); Mean Corpuscular Hemoglobin 30.8 pg (26-34); Mean Corpuscular Volume 90.6 fl (80-100); Nucleated Red Blood Cells Absolute Auto 0.000 K/mm3 (0.0-0.012); Nucleated Red Blood Cells Perc 0.0 % (0.0-0.2); Platelet Count Result 316 k/mm3 (150-375); Red Blood Count 5.23 M/mm3 (4.6-6.20); White Blood Count 12.8 K/mm3 (4.5-10.0)
--- NOTE | 2025-06-16 08:09 | PC.NURSE ---
Pt visitor approached nurses station stating pt is in pain, EDP made aware. Pt visitor directed back into room
[2025-06-16] MEDS: ONDANSETRON INJ 4 MG/2 ML VIAL IV PUSH (08:17)
[2025-06-16 08:20] VITALS: BP 141/102; PULSE 97; RESP 22; O2SAT 99
[2025-06-16] MEDS: MORPHINE SULFATE (*CRX) 4 MG/ML INJ IV PUSH (08:20)
[2025-06-16 08:33] LABS: Alanine Aminotransferase 28 U/L (6-50); Albumin Level 4.4 g/dL (3.5-5.1); Alkaline Phosphatase 86 U/L (38-126); Anion Gap 9 mmol/L (4-12); Aspartate Amino Transferase 28 U/L (17-59); Bilirubin,Total 0.5 mg/dL (0.2-1.3); Blood Urea Nitrogen 10 mg/dL (9-20); Calcium 9.4 mg/dL (8.4-10.2); Carbon Dioxide 23 mmol/L (22-30); Chloride 109 mmol/L (98-107); Estimated CRCL calculation 73 ml/min; Estimated Glomerular Filt Rate > 60; Glucose 119 mg/dL (65-110); Potassium 3.7 mmol/L (3.4-5.0); Sodium 141 mmol/L (137-145); Total Protein 7.3 g/dL (6.3-8.2)
[2025-06-16] MEDS: HYDROmorphone HCL INJ (*CRX) 1 MG/ML SYR 0.5 MG IV PUSH (08:54)
[2025-06-16] MEDS: SODIUM CHLORIDE 0.9% IV 1,000 ML 999 ML IV CONT ×2 (09:08→10:20)
--- NOTE | 2025-06-16 09:20 | ED.ABDPAIN ---
HPI - Abdominal Pain General Chief Complaint: Abdominal Pain Stated Complaint: passing kidney stone Time Seen by Provider: 06/16/25 08:51 Source: patient and other Mode of arrival: ambulatory Limitations: no limitations History of Present Illness HPI narrative: Patient presents with concern that he is possibly passing a kidney stone. He experienced acute onset left flank pain at 5:00 a.m. that radiates into his left lower abdomen. Denies any dysuria, urgency, frequency, or hematuria. Denies any trauma or injury. No fevers or chills. He did pass a kidney stone approximately 20 years ago but used a strainer. No previous complications requiring surgical intervention or otherwise. Does not follow regularly with a urologist. No change in urine output. He had similar feeling on Wednesday that lasted 2 hours but because it subsided he did not present at that time. He describes the pain in his back as feeling like it is pulsating. No history of UTI or pyelonephritis. Last bowel movement was this morning. He notes that he usually has chronic diarrhea but he did have a solid bowel movement this morning. Denies any penile discharge. He has been somewhat more in mobile recently as he recently underwent shoulder surgery on the left side and has been using a wedge pillow. He notices the pain is intense even when laying on his left. Related Data Home Medications ?Medication ?Instructions ?Recorded ?Confirmed ?Last Taken ?Type baclofen 20 mg tablet 20 mg PO TID 11/12/20 01/30/21 01/30/21 History citalopram 40 mg tablet 40 mg PO HS 11/12/20 01/30/21 01/29/21 History zolpidem 10 mg tablet 10 mg PO HS 11/12/20 01/30/21 01/29/21 History gabapentin 800 mg tablet 2,400 mg PO BID 11/20/20 01/30/21 01/30/21 History Allergies Allergy/AdvReac Type Severity Reaction Status Date / Time meloxicam (From Mobic) Allergy Itching Verified 06/16/25 07:53 nicotine (From Nicoderm CQ) Allergy Blister Verified 06/16/25 07:53 [facility] Past Medical History Medical History Kidney stone approx 2004 Psoriasis CRPS (complex regional pain syndrome) type I Family History Family History (System 08/07/22 @ 11:11 by Lev Melchor) Mother Cancer Grandparent Heart disease Sibling Hypertension Social History Social History (System 08/07/22 @ 11:11 by Lev Melchor) Smoking packs per day: 0.75 Smoking cigarettes per day: 15.0 Years smoked: 20 Smoking pack-years: 15.00 Smoking status: Current every day smoker Tobacco type: cigarettes Alcohol intake: current Alcohol use details: 2/MONTH Substance use: never Substance use type: does not use Living arrangements: with family Additional living arrangements comments: WITH COUSINLEXUS Spiritual care concerns: No Exam Narrative: GENERAL: Well-appearing, well-nourished; HEAD: Normocephalic, atraumatic. EYES: Non injected, non icteric ENT: Nares clear, no rhinorrhea or epistaxis. Gross auditory acuity intact. NECK: Supple. No meningismus. CHEST: Speaking in full sentences. No respiratory distress. HEART: Regular rate and rhythm. . ABDOMEN: Soft, nondistended. Not peritoneal EXTREMITIES: Normal range of motion. SKIN: Warm, dry. Psoriatic lesions across bilateral aspects of back but without any particular vesicles/ecchymosis, etc. BACK/ : No left-sided CVA tenderness. No midline tenderness on palpation of lower thoracic and lumbar spinous processes which are midline without obvious bony step-offs or deformity. NEURO: No focal deficits. Alert and oriented. Answering questions. Following commands. Normal speech without aphasia or dysarthria. PSYCH: Congruent mood and affect. Course Vital Signs Vital signs: Vital Signs Temperature 98.6 F 06/16/25 07:39 Pulse Rate 75 06/16/25 07:39 Respiratory Rate 18 06/16/25 07:39 Blood Pressure 153/104 H 06/16/25 07:39 Pulse Oximetry 100 06/16/25 07:39 Temperature 98.6 F 06/16/25 07:39 Pulse Rate 84 06/16/25 12:12 Respiratory Rate 18 06/16/25 12:12 Blood Pressure 144/99 H 06/16/25 12:12 Pulse Oximetry 98 06/16/25 12:12 MDM - Abdominal Pain MDM Narrative Medical decision making narrative: Patient presents with report of acute onset left flank pain radiating into his low left abdomen. This started at 5:00 a.m.. He notes that he had similar pain that lasted for 2 hours on Wednesday. History of a kidney stone but more than 20 years ago and otherwise uncomplicated. In the emergency department he is afebrile with vital signs notable for hypertension. Family did, and note the patient was in pain so 4 mg morphine with the addition of 4 mg Zofran was ordered before my assessment. He continued to be in pain which was appreciated well assessing a patient in adjacent room. Dilaudid ordered. After this his pain is 7/10 in severity. Fentanyl ordered. Complaining of dry mouth. He has a leukocytosis. Patient still cannot produce urine sample. 2 L IV fluids ordered. Opiates on UDS (given this in ED) as well as cannabinoids. CT imaging as below. Patient given ketorolac and Tamsulosin and discharged with Rx for the same. Differential Diagnosis Differential diagnosis: Likely abdominal pain, calculus of kidney, constipation, diverticulitis and other (Shingles; musculoskeletal strain) Lab Data Attestation: I reviewed the patient's lab results. Lab results narrative: Normal renal function 06/16/25 07:50 06/16/25 07:50 Labs: Lab Results 06/16/25 06/16/25 Range/Units 07:50 11:10 WBC 12.8 H (4.5-10.0) K/mm3 RBC 5.23 (4.6-6.20) M/mm3 Hgb 16.1 (14.0-18.0) g/dL Hct 47.4 (42.0-52.0) % MCV 90.6 (80-100) fl MCH 30.8 (26-34) pg MCHC 34.0 (32-36) g/dl RDW 12.6 (11.5-14.5) % Plt Count 316 (150-375) k/mm3 MPV 10.4 (7.4-10.4) fl Immature Gran % (Auto) 0.2 (0-0.5) % Neut % (Auto) 78.1 H (45.5-73.1) % Lymph % (Auto) 12.8 L (18.3-44.2) % Nelson % (Auto) 5.6 (2.6-8.5) % Eos % (Auto) 2.4 (0-4.4) % Baso % (Auto) 0.9 (0.2-1.2) % Lymph # (Auto) 1.64 (0.9-3.2) K/mm3 Nelson # (Auto) 0.7 H (0.1-0.6) K/mm3 Eos # (Auto) 0.3 (0-0.3) K/mm3 Baso # (Auto) 0.1 (0.0-0.1) K/mm3 Abs Immat Gran (auto) 0.03 (0.00-0.031) K/mm3 Absolute Neuts (auto) 10.0 H (1.3-6.7) K/mm3 Absolute Nucleated RBC 0.000 (0.0-0.012) K/mm3 Nucleated RBC % 0.0 (0.0-0.2) % Sodium 141 (137-145) mmol/L Potassium 3.7 (3.4-5.0) mmol/L Chloride 109 H (98-107) mmol/L Carbon Dioxide 23 (22-30) mmol/L Anion Gap 9 (4-12) mmol/L BUN 10 (9-20) mg/dL Creatinine 1.01 (0.7-1.3) mg/dL Estim Creat Clear Calc 73 ml/min Estimated GFR > 60 (59 - ) Glucose 119 H (65-110) mg/dL Calcium 9.4 (8.4-10.2) mg/dL Total Bilirubin 0.5 (0.2-1.3) mg/dL AST 28 (17-59) U/L ALT 28 (6-50) U/L Alkaline Phosphatase 86 (38-126) U/L Total Protein 7.3 (6.3-8.2) g/dL Albumin 4.4 (3.5-5.1) g/dL Urine Color Yellow (Yellow) Urine Appearance Clear (Clear) Urine pH 7.5 (5.0-9.0) Ur Specific [place] 1.010 (1.001-1.035) Urine Protein Negative (Negative) mg/dL Urine Glucose (UA) Negative (Negative) mg/dL Urine Ketones Negative (Negative) mg/dL Ur Blood (Man) 2+ H (Negative) Urine Nitrate Negative (Negative) Urine Bilirubin Negative (Negative) Urine Urobilinogen 1.0 (<2.0) mg/dL Leukocyte Esterase Rfl Negative (Negative) ANGUS/UL Urine RBC 6-10 H (0-2) /hpf Urine WBC 0-5 (0-3) /hpf Ur Squamous Epith Cells None seen (Few) /hpf Urine Bacteria None seen /hpf Urine Casts 0-2 Urine Opiates Screen Positive A (Negative) Urine Methadone Screen Negative (Negative) Ur Barbiturates Screen Negative (Negative) Ur Phencyclidine Scrn Negative (Negative) Ur Amphetamine Screen Negative (Negative) U Benzodiazepines Scrn Negative (Negative) Urine Cocaine Screen Negative (Negative) U Cannabinoids Screen Positive A (Negative) Imaging Data Radiologist's impression: ITS Impressions Abdomen/Pelvis CT 06/16/25 10:21 IMPRESSION: 1. Left-sided hydronephrosis and hydroureter without obstructing calcified ureteral calculus. Findings may relate to a recently passed calculus, the differential includes an obstructing noncalcified calculus, stricture or urinary tract infection. Correlate clinically. Follow-up is suggested to assess resolution. 2. Incidental findings above Discharge Plan Discharge Clinical Impression: Acute left flank pain, Left lower quadrant abdominal pain, Leukocytosis, Hydronephrosis, Hydroureter, Hematuria, microscopic, Marijuana use Patient Disposition: Home Condition: Stable Instructions: Antibiotic Form, Abdominal Pain (ED), Flank Pain (ED), Hydronephrosis (ED) Additional Instructions: You had some microscopic blood in your urine. No stone was seen on your CT scan that you had evidence that you likely recently passed a stone based on the urine and the appearance of your left kidney and ureter (tube that leads from the kidney to the bladder). You can take the rest of the course the NSAID prescribed which can help with the residual pain and inflammation. Flomax can also continue to help with the forward flushing of urine (you also received the first dose of this in ED today). If you continue to have issues with kidney stones, the name of a urologist is listed below. Patient Language: Palauan Prescriptions: New tamsulosin [Flomax] 0.4 mg capsule 0.4 mg PO DAILY Qty: 14 0RF ketorolac 10 mg tablet 10 mg PO Q8H PRN (Reason: pain) 5 Days Qty: 14 0RF Rx Instructions: maximum total duration of 5 days from all oral, intranasal, or parenteral formulations; received first tab in ED 06/16 No Action citalopram 40 mg tablet 40 mg PO HS zolpidem 10 mg tablet 10 mg PO HS baclofen 20 mg tablet 20 mg PO TID gabapentin 800 mg tablet 2,400 mg PO BID Follow-up/Referrals: Oscar,SHERRIE Reinoso [Primary Care Provider, Unknown] Hector Pham MD [Physician, Urology] Stand Alone Forms: Work/School Release IP Time of Disposition: 11:54
[2025-06-16 09:24] VITALS: BP 143/107; PULSE 82; RESP 12; O2SAT 97
--- NOTE | 2025-06-16 09:25 | PC.NURSE ---
Pt states still unable to urinate at this time
[2025-06-16 10:21] VITALS: BP 136/80; PULSE 64; RESP 12; O2SAT 97
[2025-06-16] MEDS: fentaNYL CITRATE INJ (*CRX) 100 MCG/2 ML VIAL 25 MCG IV PUSH (10:21)
[2025-06-16] MEDS: KETOROLAC 30 MG/ML VIAL (*BKC) IV PUSH (11:15)
[2025-06-16 11:17] VITALS: BP 131/82; PULSE 64; RESP 15; O2SAT 97
[2025-06-16 11:22] LABS: Add Urine Microscopic? YES; Appearance Urine Clear (Clear); Glucose Urine UA Negative (Negative); Leukocyte Esterase Ur Negative LEU/UL (Negative); Nitrate Urine Negative (Negative); Non Pathogenic Casts 0-2; Specific Grav Ur 1.010 (1.001-1.035)
[2025-06-16 11:35] LABS: Cannabinoid Screen Urine Positive (Negative)
[2025-06-16 12:12] VITALS: BP 144/99; PULSE 84; RESP 18; O2SAT 98
[2025-06-16] MEDS: TAMSULOSIN HCL 0.4 MG CAPSULE PO (12:15)
== END 2025-06-16 12:28 | disposition home or self-care (01) ==
PROVIDERS: Emergency Provider Student in an Organized Health Care Education/Training Program; PCP Physician Assistant
DX: R10.32 Left lower quadrant pain (principal); D72.829 Elevated white blood cell count, unspecified; N13.30 Unspecified hydronephrosis; R31.9 Hematuria, unspecified; F12.90 Cannabis use, unspecified, uncomplicated; F17.210 Nicotine dependence, cigarettes, uncomplicated; Z87.442 Personal history of urinary calculi
CPT/HCPCS: 36415; 74176; 80053; 80307; 81001; 85025; 96361; 96374; 96375; 99284; A9270; J1171; J1200; J1885; J2270; J2405; J3010; J7030

== ENCOUNTER 2025-07-03 08:00 | Outpatient (RCR) | payer OTHER, SELFPAY ==
--- NOTE | 2025-04-04 10:46 | OPREHPOC ---
Outpatient Therapy Plan of Care This is a Multidisciplinary Plan of Care that may contain components documented by all disciplines (PT, OT, and ST.) PT Problem 1 PT Problem #1 Knowledge Deficit PT Goal 1 Goal / Goal Update 1. Patient to demonstrate independence with HEP for improved self-reliance of symptom management. Target Visit 8 PT Problem 2 PT Problem #2 Pain PT Goal 1 Goal / Goal Update 1. Patient to decrease subjective reports of pain to <2/10 for improved ADL tolerance. 2.Patient will score </=25% disability on the QuickDash to demonstrate meaningful improvement in patient's quality of life. Target Visit 24 PT Problem 3 PT Problem #3 Impaired Range of Motion PT Goal 1 Goal / Goal Update 1. Pt to demonstrate an increase of L shoulder AROM of 0-160 deg to improve the ability to reach overhead. 2. Pt to demonstrate an increase of L shoulder AROM rotation to 140 degrees of combined movement Target Visit 24 PT Problem 4 PT Problem #4 Impaired Strength PT Goal 1 Goal / Goal Update 1. Patient to demonstrate L shoulder girdle strength >=4+/5 for improved functional stability required for ADLs. Target Visit 24
--- NOTE | 2025-04-04 10:47 | PTOPEVAL1 ---
Assessment and note entered by Tripp Swain, PT Evaluation Information Assessment Status Evaluation ICD-10 Condition Codes (PT) Pain in left shoulder M25.512,Pain in left knee M25.562 Onset post surgical 03-27-25 Subjective Information Patient presents status post L shoulder L labral repair on date of surgery by Dr. Yang. Patient reports no complications with surgery. Patient is currently in a sling at all times except for hygiene. Patient needs to get back to activities of daily living and instrumental activities of daily living. Patient is currently sleeping in bed with wedge pillow but reports difficulty sleeping . Patient states he is potentially having L knee surgery after shoulder recovers and reports a history of CRPS Reported Pain Level Pain Score 6: Self Report Assessment PT Clinical Summary Patient presents to physical therapy status post L shoulder labral repair on 03-27-25. Patient demonstrates post surgical weakness, pain, decreased mobility, abnormal posture,, and decreased flexibility that limit their ability to perform activities of daily living and functional movements. Patient was educated on protecting surgical site and following protocol. Patient will benefit from skilled physical therapy to address the above listed deficits and return to prior level of function. Home exercise program instructed and written handout provided, exercises tolerated well with no adverse effects to note post-session. Patient was educated on importance of adherence to home exercise program. Patient was also educated on anatomy, prognosis, home modalities, and plan of care. Plan of Care Interventions Electrical Stimulation,Hot Pack/Cold Pack,Manual Therapy,Neuro Re-education,Therapeutic Activities, Therapeutic Exercise,Other PT Services Indicated Yes Treatment Frequency and 2-3x week for 24 visits Duration These treatments will address the objective and functional deficits as defined above. The patient will be advanced safely and appropriately in order for the patient to progress towards his/her prior level of function. Additional exercises will be introduced and as well as a comprehensive home exercise program upon discharge, if needed, ?to ensure carryover of functional gains achieved in the clinic. This treatment plan has been reviewed and agreement upon by the patient.
--- NOTE | 2025-05-07 09:57 | OPREHPOC ---
Outpatient Therapy Plan of Care This is a Multidisciplinary Plan of Care that may contain components documented by all disciplines (PT, OT, and ST.) PT Problem 1 PT Problem #1 Knowledge Deficit PT Goal 1 Goal / Goal Update 1. Patient to demonstrate independence with HEP for improved self-reliance of symptom management. (05/07/25 progressing) Target Visit 8 Progress Partially Met PT Problem 2 PT Problem #2 Pain PT Goal 1 Goal / Goal Update 1. Patient to decrease subjective reports of pain to <2/10 for improved ADL tolerance. (05/07/25 high pain levels 7/10) 2.Patient will score </=25% disability on the QuickDash to demonstrate meaningful improvement in patient's quality of life. (05/07/25 77%) Target Visit 24 PT Problem 3 PT Problem #3 Impaired Range of Motion PT Goal 1 Goal / Goal Update 1. Pt to demonstrate an increase of L shoulder AROM of 0-160 deg to improve the ability to reach overhead. (05/07/25 unable to address due to protocol limitations) 2. Pt to demonstrate an increase of L shoulder AROM rotation to 140 degrees of combined movement (05/07/25 unable to address due to protocol limitations) Target Visit 24 Progress Not Met PT Problem 4 PT Problem #4 Impaired Strength PT Goal 1 Goal / Goal Update 1. Patient to demonstrate L shoulder girdle strength >=4+/5 for improved functional stability required for ADLs. (05/07/25 unable to address due to protocol limitations) Target Visit 24 Progress Not Met
--- NOTE | 2025-05-07 09:58 | PTOPPROG ---
Assessment and note entered by Vikki Molina, PT Evaluation Information Assessment Status Progress ICD-10 Condition Codes (PT) Pain in left shoulder M25.512,Pain in left knee M25.562 Onset post surgical 03-27-25 Subjective Information Patient presents status post L shoulder L labral repair who is now approximately 5 weeks and 6 days post procedure. He continues to have intense pain since the nerve block wore off. He feels a ball in the bicep region when he is doing anything with his elbow and doesn't think he can get it straight. Overall since starting therapy the pt reports feeling 0% improvement. He feels like his arm is gonna slip out when he attempts the pendulums. Assessment PT Clinical Summary Patient is currently 5 weeks and 6 days post L shoulder surgery. Patient continues to demonstrate post surgical weakness, pain, decreased mobility in the shoulder and elbow that limit their ability to perform activities of daily living and functional movements. His current PROM flexion is 88 degrees, scaption 78 degrees, extension 0 degrees, IR in scaption 35 degrees and ER in scaption 12 degrees. Held MMT due to protocol restrictions. Patient was educated on current protocol restrictions and educated to ask his MD about his current concerns regarding the progress of his repair. Patient will benefit from skilled physical therapy to address the above listed deficits and return to prior level of function. Plan of Care Interventions Electrical Stimulation,Hot Pack/Cold Pack,Manual Therapy,Neuro Re-education,Therapeutic Activities, Therapeutic Exercise,Other PT Services Indicated Yes Treatment Frequency and 2-3x week for 16 visits Duration These treatments will address the objective and functional deficits as defined above. The patient will be advanced safely and appropriately in order for the patient to progress towards his/her prior level of function. Additional exercises will be introduced and as well as a comprehensive home exercise program upon discharge, if needed, ?to ensure carryover of functional gains achieved in the clinic. This treatment plan has been reviewed and agreement upon by the patient.
--- NOTE | 2025-05-09 10:30 | PCPTNOTE ---
spoke with Dr. Yang about pt progress and appropriate healing timeline, concerns for continued pain related to CRPS
--- NOTE | 2025-05-10 09:58 | PCPTNOTE ---
Returning pt phone call, stated he hurt so bad after leaving MD office. Pt still concerned about his pain not being normal post-op pain even after speaking to his MD on 05/09. Pt educated on PT POC continuing according to MD protocol and modalities for pain control.
--- NOTE | 2025-05-30 10:02 | PCPTNOTE ---
Cancelled d/t transportation issues, per front office. AKS
--- NOTE | 2025-06-06 12:11 | PCPTNOTE ---
Pt canceled due to food poisoning.
--- NOTE | 2025-06-06 13:12 | PCPTNOTE ---
attempted to contact pt per his request via message left with the front office, left VM telling him to call back at his earliest convenience
--- NOTE | 2025-06-18 15:09 | OPREHPOC ---
Outpatient Therapy Plan of Care This is a Multidisciplinary Plan of Care that may contain components documented by all disciplines (PT, OT, and ST.) PT Problem 1 PT Problem #1 Knowledge Deficit PT Goal 1 Goal / Goal Update 1. Patient to demonstrate independence with HEP for improved self-reliance of symptom management. 06/18/25 continuing to progress HEP per protocol, continued compliance Target Visit 8 Progress Partially Met PT Problem 2 PT Problem #2 Pain PT Goal 1 Goal / Goal Update 1. Patient to decrease subjective reports of pain to <2/10 for improved ADL tolerance. 2.Patient will score </=25% disability on the QuickDash to demonstrate meaningful improvement in patient's quality of life. 06/18/25 1. high pain levels 7/10 2. 75% Target Visit 24 Progress Not Met PT Problem 3 PT Problem #3 Impaired Range of Motion PT Goal 1 Goal / Goal Update 1. Pt to demonstrate an increase of L shoulder flexion AROM of 0-160 deg to improve the ability to reach overhead. 2. Pt to demonstrate an increase of L shoulder AROM rotation to 140 degrees of combined movement. 06/18/25 progressing 1. Flexion: L: 138 2. IR in Scap L: 42; ER in Scap L: 32 Target Visit 24 Progress Partially Met PT Problem 4 PT Problem #4 Impaired Strength PT Goal 1 Goal / Goal Update 1. Patient to demonstrate L shoulder girdle strength >=4+/5 for improved functional stability required for ADLs. 06/18/25 progressing 1. 3+/5 throughout Target Visit 24 Progress Partially Met
--- NOTE | 2025-06-18 15:09 | PTOPPROG ---
Assessment and note entered by Vikki Molina, PT Evaluation Information Assessment Status Progress ICD-10 Condition Codes (PT) Pain in left shoulder M25.512,Pain in left knee M25.562 Onset post surgical 03-27-25 Subjective Information Pt thinks his shoulder might be getting a little stronger and having more mobility/functional use since his last progress note. He reports his pain is unchanged and he thinks his experience in the hospital this weekend explains it. He reports he went to the ED for kidney stones and the dilaudid, morphine, and Benadryl help his abdominal and low back pain but did not touch his shoulder pain. He thinks his pain stops him from getting stronger and he thinks he needs pain medication from his doctor so he can progress his shoulder. Assessment PT Clinical Summary Pt has seen both ROM and strength improvements to this point in recovery. Still demonstrates deficits in both with pain being an inhibitor to progression of strength and functional mobility. Pt educated in pain neuroscience and impact it can have in recovery but discomfort and limitations at this stage of protocol is typical. Pt continues to report high levels of pain and QuickDASH score of 75% disability. 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 Plan of Care Interventions Electrical Stimulation,Hot Pack/Cold Pack,Manual Therapy,Neuro Re-education,Therapeutic Activities, Therapeutic Exercise,Other PT Services Indicated Yes Treatment Frequency and 2x/week for 10 visits Duration These treatments will address the objective and functional deficits as defined above. The patient will be advanced safely and appropriately in order for the patient to progress towards his/her prior level of function. Additional exercises will be introduced and as well as a comprehensive home exercise program upon discharge, if needed, ?to ensure carryover of functional gains achieved in the clinic. This treatment plan has been reviewed and agreement upon by the patient.
== END 2025-07-03 23:59 | disposition home or self-care (01) ==
LOC: ANHPT 08:00
PROVIDERS: PCP Physician Assistant; Visit Provider Orthopaedic Surgery Sports Medicine
DX: M25.562 Pain in left knee (principal)
CPT/HCPCS: 97014; 97110; 97140; 97161; 97530; G0283

== ENCOUNTER 2025-07-27 15:15 | Outpatient (RCR) | payer MEDICARE, OTHER, SELFPAY ==
--- NOTE | 2025-07-27 16:00 | OPREHPOC ---
Outpatient Therapy Plan of Care This is a Multidisciplinary Plan of Care that may contain components documented by all disciplines (PT, OT, and ST.) PT Problem 1 PT Problem #1 Knowledge Deficit PT Goal 1 Goal / Goal Update 1. Patient to demonstrate independence with HEP for improved self-reliance of symptom management. 06/18/25 continuing to progress HEP per protocol, continued compliance 07-27-25 d/c goal met Target Visit 24 Progress Met PT Problem 2 PT Problem #2 Pain PT Goal 1 Goal / Goal Update 1. Patient to decrease subjective reports of pain to <2/10 for improved ADL tolerance. 2.Patient will score </=25% disability on the QuickDash to demonstrate meaningful improvement in patient's quality of life. 06/18/25 1. high pain levels 7/10 2. 75% 07-27-25 d/c goals not met: #1: 7/10 and #2 39% Target Visit 24 Progress Not Met PT Problem 3 PT Problem #3 Impaired Range of Motion PT Goal 1 Goal / Goal Update 1. Pt to demonstrate an increase of L shoulder flexion AROM of 0-160 deg to improve the ability to reach overhead. 2. Pt to demonstrate an increase of L shoulder AROM rotation to 140 degrees of combined movement. 06/18/25 progressing 1. Flexion: L: 138 07-27-25 d/c goals met 2. IR in Scap L: 42; ER in Scap L: 32 Target Visit 24 Progress Met PT Problem 4 PT Problem #4 Impaired Strength PT Goal 1 Goal / Goal Update 1. Patient to demonstrate L shoulder girdle strength >=4+/5 for improved functional stability required for ADLs. 06/18/25 progressing 1. 3+/5 throughout 07-27-25 d/c goal met Target Visit 24 Progress Met
--- NOTE | 2025-07-27 16:00 | PTOPDC ---
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 He has improved in all areas. With today's assessment: pain range of 3-7/10 at lateral shoulder and lateral humerus; self assessment with Quick DASH rating of 39% limitation in activity level; education completed for HEP and monitor activity/rest balance to manage his pain. AROM of L shoulder: flexion 160', abduction 165', IR- reaching behind back, thumb to inferior scapula; ER- reach behind back, fingers to cervical spine. Pain increase with IR motion. Strength of L UE: in standing with hand weight x 5 reps: maximum weight testing: - shoulder flexion to ~ 90, 7# - shoulder abduction to ~ 90' ,7# - shoulder ER with elbow at side, 5# - elbow flexion 15 # ----- bilateral UE box lift from waist/floor: maximum weight 34#, stop due to L knee pain, not due to L shoulder The goals were achieved, except the pain rating. Discharge PT. He is to continue with the HEP. Plan of Care PT Services Indicated No
== END 2025-08-01 12:23 | disposition home or self-care (01) ==
LOC: ANHPT 15:15
PROVIDERS: PCP Physician Assistant; Visit Provider Orthopaedic Surgery Sports Medicine
DX: M25.562 Pain in left knee (principal); S43.432A Superior glenoid labrum lesion of left shoulder, initial encounter
CPT/HCPCS: 97110; 97140; 97530

== ENCOUNTER 2025-09-11 11:00 | Outpatient (RCR) | payer MEDICARE, SELFPAY ==
--- NOTE | 2025-08-24 08:51 | OPREHPOC ---
Outpatient Therapy Plan of Care This is a Multidisciplinary Plan of Care that may contain components documented by all disciplines (PT, OT, and ST.) PT Goal 1 Goal / Goal Update *independent with HEP Target Visit 6 PT Problem 2 PT Problem #2 Pain PT Goal 1 Goal / Goal Update 1* pt report pain rating at worst of 7/10 2* pt report with sleeping, awaken 3x/night due to pain 3* pt report walking tolerance of 15 minutes Target Visit 6 PT Problem 3 PT Problem #3 Impaired Strength PT Goal 1 Goal / Goal Update * increase gross strength of L hip and knee to 4+/ 5, to improve stability to knee joint Target Visit 6 PT Problem 4 PT Problem #4 Impaired Functional Mobility PT Goal 1 Goal / Goal Update * 2 minute walking test distance of 400' Target Visit 6
--- NOTE | 2025-08-24 08:51 | PTOPEVAL1 ---
Assessment and note entered by Guillermina Mccormack PT Evaluation Information Assessment Status Evaluation ICD-10 Condition Codes (PT) Pain in left knee M25.562 Onset over 1 year Subjective Information chronic issues and pain with L knee pain since 2013 surgery; have gotten worse, no falls or trauma to knee; try to baby the knee and do not lean on it or squat to stress it; recent xray of knee at another facility, pt did not know results medical history includes: multiple knee surgeries bilateral, L shoulder surgery; chronic pain activity: on disability due to complex regional pain syndrome; does not use an assistive device due to knee pain is not squatting, kneeling; walking and stairs painful to knee; knee gives out/ eduardo, not had any falls; Reported Pain Level Pain Score Self Report Additional Pain Score Comments pain range in the past week 7-10; grinding pain, hurts in center of knee joint; can move and do things, but as soon as activate the quads and knee muscles, knee cap grinds and hurts increase pain: walking tolerance reported 10 min, stairs, squatting, kneeling decrease pain: rest, elevation, ice and pain meds-- do not help; knee generates so much heat, ice melts and cannot use it report with sleeping- awaken due to L knee pain 4- 5x/night have tried multiple knee braces, they do not help; Assessment PT Clinical Summary Victoriano has the diagnosis of L knee pain. Reports gradual increase in knee pain without injury to knee. Walking and stairs increase his pain. Sleep is disrupted due to pain. LE functional scale self rating of 69% limitation in activity level. His medical history includes multiple knee surgeries on both knees, complex regional pain syndrome on L side of body and chronic pain. He is on disability due to chronic pain. He had an xray but does not know the results of it . The dr wants to do an MRI, but denied until he has PT. With the evaluation: L knee and hip ROM is WNL; pain is increased with knee flexion and extension motions; 2 minute walking test distance of 340'; gross strength of L hip and knee is 4/5. He did not want his knee or quad to be touched and any active quad strengthening increase his pain. Skilled PT services are indicated for modalities to decrease pain, therapeutic exercises to increase strength and education for HEP. Plan of Care Interventions Electrical Stimulation,Hot Pack/Cold Pack,Manual Therapy,Neuro Re-education,Patient/Caregiver Education,Therapeutic Activities,Therapeutic Exercise,Ultrasound,Other Other Interventions taping PT Services Indicated Yes Treatment Frequency and 2x/wk for 6 visits Duration These treatments will address the objective and functional deficits as defined above. The patient will be advanced safely and appropriately in order for the patient to progress towards his/her prior level of function. Additional exercises will be introduced and as well as a comprehensive home exercise program upon discharge, if needed, ?to ensure carryover of functional gains achieved in the clinic. This treatment plan has been reviewed and agreement upon by the patient.
--- NOTE | 2025-09-11 11:36 | OPREHPOC ---
Outpatient Therapy Plan of Care This is a Multidisciplinary Plan of Care that may contain components documented by all disciplines (PT, OT, and ST.) PT Goal 1 Goal / Goal Update *independent with HEP 09-11-25 d/c goal met Target Visit 6 Progress Met PT Problem 2 PT Problem #2 Pain PT Goal 1 Goal / Goal Update 1* pt report pain rating at worst of 7/10 2* pt report with sleeping, awaken 3x/night due to pain 3* pt report walking tolerance of 15 minutes 09-11-25 d/c goals not met: #1 9/10; #2 5x/night #3 10-15 minutes Target Visit 6 Progress Not Met PT Problem 3 PT Problem #3 Impaired Strength PT Goal 1 Goal / Goal Update * increase gross strength of L hip and knee to 4+/ 5, to improve stability to knee joint 09-11-25 d/c goal not met 4/5 Target Visit 6 Progress Not Met PT Problem 4 PT Problem #4 Impaired Functional Mobility PT Goal 1 Goal / Goal Update * 2 minute walking test distance of 400' 09-11-25 d/c goal not met, 300' Target Visit 6
--- NOTE | 2025-09-11 11:36 | PTOPDC ---
Assessment and note entered by Guillermina Mccormack, PT Assessment Status Discharge ICD-10 Condition Codes (PT) Pain in left knee M25.562 Onset over 1 year Subjective Information feel like knee is the same, has not changed from coming for therapy; sore after doing the standing and balance exercises here last time. going to have an MRI on and then see the dr after that sometime. Want to be finished with therapy and get the dr to check and the knee and do something about it. Reported Pain Level Pain Score Self Report Additional Pain Score Comments pain range range of the past week 7-9/10 feels like knee going to pop and give out decrease pain: elevate leg; reported walking tolerance of 10-15 minutes at most and awaken from sleeping about 5 x/night Assessment PT Clinical Summary Victoriano has received 5 PT sessions. With comparison of today's assessment to the initial evaluation: is the same with: pain rating 7-9/10, reported walking 10-15 minutes & awakening from sleeping 4-5x/ night; self assessment with LE functional scale rating of 69% limitation activity level; 2 minute walking test distance has decreased from 340' to 300'; education for HEP. The goal for HEP education was the only goal achieved. Discharge PT. He is scheduled for MRI and follow up with . Plan of Care PT Services Indicated No
== END 2025-09-11 13:46 | disposition home or self-care (01) ==
LOC: ANHPT 11:00
PROVIDERS: PCP Physician Assistant; Visit Provider Orthopaedic Surgery Sports Medicine
DX: S43.432A Superior glenoid labrum lesion of left shoulder, initial encounter (principal); M25.562 Pain in left knee
CPT/HCPCS: 97014; 97110; 97161; 97530; G0283